=== PATIENT | female | born 1975 | race Caucasian/White ===

== ENCOUNTER 2017-04-06 21:18 | Inpatient (IN) | payer SELFPAY ==
[~2017-04-06] VITALS: Ht 175.3 cm; Wt 161.1 kg
[~2017-04-06 21:18] MED LIST: CYCL10TA2 PO; DULO60CA6 PO; HYDR-2672 PO; LISI2.5T PO
[2017-04-06] MEDS ORDERED: ACETAMINOPHEN 500 MG TABLET PO ONE (22:00)
[2017-04-06] MEDS ORDERED: IV NORMAL SALINE 1000ML BAG 1,000 ML IV ONE ×2 (22:00→23:30)
[2017-04-06] MEDS ORDERED: fentaNYL PF VIAL 100 MCG/2 ML VIAL IV ONE (22:00)
[2017-04-06 22:01] LABS: BASO % 0 % (0-3); EOS % 0 % (0-3); HEMATOCRIT 38.2 % (36.0-47.0); HEMOGLOBIN 12.5 g/dL (12.0-15.5); LYMPH # 0.7 x10^3/uL (1.0-4.8); LYMPH % 4 % (24-48); MEAN CORPUSCULAR HEMOGLOBIN 26 pg (25-35); MEAN CORPUSCULAR HGB CONC 33 g/dL (31-37); MEAN CORPUSCULAR VOLUME 79 fL (79-100); MONO % 3 % (0-9); NEUT % 93 % (31-73); PLATELET COUNT 331 x10^3/uL (140-400); RED BLOOD COUNT 4.86 x10^6/uL (3.50-5.40); RED CELL DISTRIBUTION WIDTH 15.4 % (11.5-14.5); WHITE BLOOD COUNT 17.6 x10^3/uL (4.0-11.0)
[2017-04-06 22:13] LABS: CALCIUM 9.4 mg/dL (8.5-10.1); CREATININE 1.1 mg/dL (0.6-1.0); GFR 54.7
--- NOTE | 2017-04-06 22:20 | RAD ---
INDICATION: Weakness COMPARISON: None TECHNIQUE: Axial, noncontrast CT images obtained through the head. One or more of the following individualized dose reduction techniques were utilized for this examination: 1. Automated exposure control; 2. Adjustment of the mA and/or kV according to patient size; 3. Use of iterative reconstruction technique. FINDINGS: No acute intracranial process is identified, specifically no acute blood products, midline shift, mass effect or extra-axial fluid collections. Ventricles and sulci appear appropriate for patient's age. Basilar cisterns are maintained. The visualized paranasal sinuses are clear. Mastoid air cells are clear. No calvarial fracture is present. Overlying scalp is intact. IMPRESSION: No acute intracranial process. Electronically signed by: Payal Davis (April 06, 2017 22:19:30)
[2017-04-06 22:27] LABS: BILIRUBIN,URINE NEGATIVE (NEG); GLUCOSE,URINE NEGATIVE (NEG); NITRITE,URINE NEGATIVE (NEG); PROTEIN,URINE NEGATIVE (NEG-TRACE)
[2017-04-06] MEDS ORDERED: CLINDAMYCIN 600MG PREMIX 50 ML IV ONE (22:30)
--- NOTE | 2017-04-06 22:32 | PHYS DOC ---
Past Medical History Past Medical History: Bipolar, Depression, Hypertension, Hypothyroid, Other Additional Past Medical Histor: OBESITY, 2 SLIPPED DISCS IN BACK Past Surgical History: , Other Additional Past Surgical Histo: CARPAL TUNNEL RELEASE Alcohol Use: Occasionally Drug Use: None Adult General Chief Complaint Chief Complaint: MULTIPLE COMPLAINTS [facility] HPI 41-year-old female is presenting with a fever as well as some significant headache that she noted around 3 PM today with some generalized weakness as well. She denies any nausea or vomiting. Patient does not appear to be in any acute distress and is nontoxic in appearance upon arrival. She is not complaining of any neck stiffness or neck pain. She does complain additionally of a left-sided anterior tibial cellulitis that has not yet been treated. She also has some ongoing fungal infection to the soles of both feet that she is on treatment for. She denies any chest pain or shortness of breath. Review of Systems Review of Systems Constitutional: Has fever or chills [] Eyes: Denies change in visual acuity, redness, or eye pain [] HENT: Denies nasal congestion or sore throat [] Respiratory: Denies cough or shortness of breath [] Cardiovascular: No additional information not addressed in HPI [] GI: Denies abdominal pain, nausea, vomiting, bloody stools or diarrhea [] : Denies dysuria or hematuria [] Musculoskeletal: Denies back pain or joint pain [] Integument: Denies rash or skin lesions [] Neurologic: Has headache, denies focal weakness or sensory changes [] Endocrine: Denies polyuria or polydipsia [] Current Medications Current Medications Current Medications Medications (Trade) Dose Ordered Sig/[facility] Start Time Stop Time Status Last Admin Dose Admin Acetaminophen (Tylenol) 1,000 mg 1X ONCE 04/06/17 22:00 04/06/17 22:01 DC 04/06/17 22:14 1,000 MG Clindamycin Phosphate 50 ml @ 100 mls/hr 1X ONCE 04/06/17 22:30 04/06/17 22:59 DC 04/06/17 22:45 100 MLS/HR Dexamethasone Sodium Phosphate (Decadron) 10 mg 1X ONCE 04/06/17 23:00 04/06/17 23:01 DC 04/06/17 23:20 10 MG Diphenhydramine HCl (Benadryl) 25 mg 1X ONCE 04/06/17 23:00 04/06/17 23:01 DC 04/06/17 23:20 25 MG Fentanyl Citrate (Fentanyl 2ml Vial) 50 mcg PRN Q2HR PRN 04/06/17 23:30 04/07/17 23:29 UNV Ketorolac Tromethamine (Toradol) 30 mg 1X ONCE 04/06/17 23:00 04/06/17 23:01 DC 04/06/17 23:20 30 MG Metoclopramide HCl (Reglan) 10 mg 1X ONCE 04/06/17 23:00 04/06/17 23:01 DC 04/06/17 23:21 10 MG Ondansetron HCl (Zofran) 4 mg PRN Q8HRS PRN 04/06/17 23:30 04/07/17 23:29 UNV Sodium Chloride 1,000 ml @ 1,000 mls/hr 1X ONCE 04/06/17 23:30 04/07/17 00:29 UNV Allergies Allergies Allergies Coded Allergies Type Severity Reaction Last Updated Verified No Known Drug Allergies 11/03/13 No Physical Exam Physical Exam Constitutional: Well developed, well nourished, no acute distress, non-toxic appearance. [] HENT: Normocephalic, atraumatic, bilateral external ears normal, oropharynx moist, no oral exudates, nose normal. [] Eyes: PERRLA, EOMI, conjunctiva normal, no discharge. [] Neck: Normal range of motion, no tenderness, supple, no stridor. [] Cardiovascular:Heart rate tachycardic with regular rhythm, no murmur [] Lungs & Thorax: Bilateral breath sounds clear to auscultation [] Abdomen: Bowel sounds normal, soft, no tenderness, no masses, no pulsatile masses. [] Skin: Warm, dry, no erythema, no rash. [] Back: No tenderness, no CVA tenderness. [] Extremities: Moderate left anterior tibial tenderness with erythema noted that is consistent with an lower extremity cellulitis, no cyanosis, no clubbing, ROM intact, no edema. [] Neurologic: Alert and oriented X 3, normal motor function, normal sensory function, no focal deficits noted. [] Psychologic: Affect normal, judgement normal, mood normal. [] Current Patient Data Vital Signs Vital Signs Date Time Temp Pulse Resp B/P (MAP) Pulse Ox O2 Delivery O2 Flow Rate FiO2 04/06/17 21:28 101.3 130 24 143/65 (91) 98 Room Air 101.3 Lab Values Laboratory Tests Test 04/06/17 20:35 04/06/17 21:29 04/06/17 21:50 POC Urine HCG, Qualitative Hcg negative (Negative) Urine Collection Type Unknown Urine Color Yellow Urine Clarity Clear Urine pH 8.0 Urine Specific [place] 1.025 Urine Protein Negative mg/dL (NEG-TRACE) Urine Glucose (UA) Negative mg/dL (NEG) Urine Ketones (Stick) Negative mg/dL (NEG) Urine Blood Negative (NEG) Urine Nitrite Negative (NEG) Urine Bilirubin Negative (NEG) Urine Urobilinogen Dipstick 1.0 mg/dL (0.2 mg/dL) Urine Leukocyte Esterase Negative (NEG) Urine RBC 0 /HPF (0-2) Urine WBC 1-4 /HPF (0-4) Urine Squamous Epithelial Cells Few /LPF Urine Bacteria Few /HPF (0-FEW) Urine Mucus Mod /LPF White Blood Count 17.6 x10^3/uL (4.0-11.0) H Red Blood Count 4.86 x10^6/uL (3.50-5.40) Hemoglobin 12.5 g/dL (12.0-15.5) Hematocrit 38.2 % (36.0-47.0) Mean Corpuscular Volume 79 fL (79-100) Mean Corpuscular Hemoglobin 26 pg (25-35) Mean Corpuscular Hemoglobin Concent 33 g/dL (31-37) Red Cell Distribution Width 15.4 % (11.5-14.5) H Platelet Count 331 x10^3/uL (140-400) Neutrophils (%) (Auto) 93 % (31-73) H Lymphocytes (%) (Auto) 4 % (24-48) L Monocytes (%) (Auto) 3 % (0-9) Eosinophils (%) (Auto) 0 % (0-3) Basophils (%) (Auto) 0 % (0-3) Neutrophils # (Auto) 16.3 x10^3uL (1.8-7.7) H Lymphocytes # (Auto) 0.7 x10^3/uL (1.0-4.8) L Monocytes # (Auto) 0.5 x10^3/uL (0.0-1.1) Eosinophils # (Auto) 0.0 x10^3/uL (0.0-0.7) Basophils # (Auto) 0.0 x10^3/uL (0.0-0.2) Platelet Estimate Pending Sodium Level 137 mmol/L (136-145) Potassium Level 4.0 mmol/L (3.5-5.1) Chloride Level 100 mmol/L (98-107) Carbon Dioxide Level 27 mmol/L (21-32) Anion Gap 10 (6-14) Blood Urea Nitrogen 14 mg/dL (7-20) Creatinine 1.1 mg/dL (0.6-1.0) H Estimated GFR (Cockcroft-Gault) 54.7 Glucose Level 134 mg/dL (70-99) H Calcium Level 9.4 mg/dL (8.5-10.1) Troponin I Quantitative < 0.017 ng/mL (0.000-0.055) Laboratory Tests 04/06/17 21:50 Laboratory Tests 04/06/17 21:50 EKG EKG EKG as interpreted by me shows a sinus tachycardia with a rate of 125 bpm. There is a leftward axis. There is no acute injury pattern seen. Intervals are normal. Radiology/Procedures Radiology/Procedures INDICATION: Weakness COMPARISON: None TECHNIQUE: Axial, noncontrast CT images obtained through the head. One or more of the following individualized dose reduction techniques were utilized for this examination: 1. Automated exposure control; 2. Adjustment of the mA and/or kV according to patient size; 3. Use of iterative reconstruction technique. FINDINGS: No acute intracranial process is identified, specifically no acute blood products, midline shift, mass effect or extra-axial fluid collections. Ventricles and sulci appear appropriate for patient's age. Basilar cisterns are maintained. The visualized paranasal sinuses are clear. Mastoid air cells are clear. No calvarial fracture is present. Overlying scalp is intact. IMPRESSION: No acute intracranial process. Electronically signed by: Payal Davis (April 06, 2017 22:19:30) 1 view of the chest as interpreted by me reveals no acute cardiopulmonary process. Course & Med Decision Making Course & Med Decision Making Pertinent Labs and Imaging studies reviewed. (See chart for details) 41-year-old female with a large semicircular last week and a dose of IV clindamycin and have full laboratory workup. A head CT is negative at this time. Patient was given a gram of Tylenol as well as IV fluids. We will await laboratory workup including influenza swabs and urinalysis. CT of her head was negative for any acute abnormality. 1 view her chest also did not reveal any acute abnormalities. Laboratory workup reveals an elevated white count of 17. Patient has remained persistently tachycardic after fluid bolus. Blood cultures and lactate been obtained. A dose of IV clindamycin has been given. I will be admitting the patient for her ongoing SIRS criteria with a known cellulitis. I will discuss the need to admit the patient with the hospitalist, Dr. Snell. Urinalysis was also unremarkable. Dragon Disclaimer Dragon Disclaimer This electronic medical record was generated, in whole or in part, using a voice recognition dictation system. Departure Departure Impression: Primary Impression: Cellulitis Additional Impressions: Fever Headache Disposition: ADMITTED INPATIENT Admitting Physician: Ava Snell Condition: STABLE Referrals: UNKNOWN PCP NAME (PCP) Problem Qualifiers JOVI MALAVE DO April 06, 2017 22:31
[2017-04-06 22:40] LABS: BACTERIA,URINE FEW /HPF (0-FEW); RBC,URINE 0 /HPF (0-2); SQUAMOUS EPITHELIAL CELL,UR FEW /LPF
[2017-04-06] MEDS ORDERED: METOCLOPRAMIDE HCL 10 MG/2 ML VIAL. IV ONE (23:00)
[2017-04-06] MEDS ORDERED: diphenhydrAMINE 50 MG/ML VIAL IVP ONE (23:00)
[2017-04-06] MEDS ORDERED: DEXAMETHASONE SOD PHOS 20 MG/5 ML VIAL. IV ONE (23:00)
[2017-04-06] MEDS ORDERED: KETOROLAC TROMETHAMINE 30 MG/ML INJ. IV ONE (23:00)
[2017-04-06 23:38] LABS: OBC FLU VALID
[2017-04-06 23:44] LABS: % BASOS 1 % (0-3)
[2017-04-06 23:45] LABS: PLT ESTIMATE ADEQUATE (ADEQUATE)
[2017-04-06] MEDS ORDERED: ONDANSETRON PF 4 MG/2 ML VIAL. IV PRN (23:45)
[2017-04-07] VITALS (7 sets, daily range): BP systolic 101–152; BP diastolic 43–78
[2017-04-07 01:19] LABS: CALCIUM 8.6 mg/dL (8.5-10.1); CREATININE 1.2 mg/dL (0.6-1.0); GFR 49.5; POTASSIUM 4.1 mmol/L (3.5-5.1)
[2017-04-07 01:20] LABS: BASO # 0.1 x10^3/uL (0.0-0.2); BASO % 0 % (0-3); EOS % 0 % (0-3); LYMPH # 0.5 x10^3/uL (1.0-4.8); LYMPH % 2 % (24-48); MEAN CORPUSCULAR HEMOGLOBIN 26 pg (25-35); MEAN CORPUSCULAR HGB CONC 33 g/dL (31-37); MEAN CORPUSCULAR VOLUME 79 fL (79-100); MONO % 3 % (0-9); NEUT % 95 % (31-73); PLATELET COUNT 259 x10^3/uL (140-400); RED BLOOD COUNT 4.68 x10^6/uL (3.50-5.40); RED CELL DISTRIBUTION WIDTH 15.8 % (11.5-14.5); WHITE BLOOD COUNT 21.5 x10^3/uL (4.0-11.0)
[2017-04-07] MEDS: IV NORMAL SALINE 1000ML BAG 1,000 ML IV SCH ×3 (01:23→15:30)
[2017-04-07] MEDS ORDERED: LISI-334 PO (01:58)
[2017-04-07] MEDS ORDERED: TERB250T PO (01:58)
[2017-04-07] MEDS ORDERED: BUDE10.22 IH (01:58)
[2017-04-07] MEDS ORDERED: CITA40TA5 PO (01:58)
[2017-04-07] MEDS ORDERED: CLON0.3T PO (01:58)
[2017-04-07] MEDS ORDERED: LEVO75TA5 PO (01:58)
[2017-04-07] MEDS ORDERED: DIVA500T2 PO (01:58)
--- NOTE | 2017-04-07 07:17 | RAD ---
Portable chest, 04/06/2017: History: Chest pain Comparison is made to a study from 01/15/2010. The heart size and pulmonary vascularity are normal. No pulmonary infiltrates are seen. There is no evidence of pleural fluid. IMPRESSION: No acute cardiopulmonary abnormality is detected.
--- NOTE | 2017-04-07 07:31 | EKG ---
[facility] [address] [place] [address] Test Date: 2017-04-06 Test Time: 21:35:41 Pat Name: NARCISO SMITH Department: Room: 646 1 Gender: F [employer]illed [employer]: : 1975 Requested By: JOVI MALAVE Order Number: [id number] Reading MD: Rosalina Gutierrez Measurements Intervals Helper Rate: 125 P: 32 WA: 168 QRS: -12 QRSD: 76 T: 62 QT: 282 QTc: 409 Interpretive Statements SINUS TACHYCARDIA LEFTWARD AXIS QRS(T) CONTOUR ABNORMALITY CONSISTENT WITH ANTEROSEPTAL INFARCT AGE UNDETERMINED T ABNORMALITY IN HIGH LATERAL LEADS RI6.01 Unconfirmed report No previous ECG available for comparison Electronically Signed On 04-10-2017 20:33:22 CDT by Rosalina Gutierrez
[2017-04-07] MEDS ORDERED: ONDANSETRON PF 4 MG/2 ML VIAL. IV PRN (10:15)
[2017-04-07] MEDS: CYCLOBENZAPRINE 10 MG TABLET. PO SCH (10:53)
[2017-04-07] MEDS: CITALOPRAM 20 MG TABLET. PO SCH (10:53)
[2017-04-07] MEDS: DIVALPROEX DELAYED RELEASE 500 MG TABLET.DR. PO SCH (10:53)
[2017-04-07] MEDS: fentaNYL PF VIAL 100 MCG/2 ML VIAL IV PRN ×2 (10:53→17:49)
[2017-04-07] MEDS: LISINOPRIL 20 MG TABLET PO SCH (10:54)
[2017-04-07] MEDS: ACETAMINOPHEN 325 MG TABLET. PO PRN ×2 (10:55→17:49)
[2017-04-07] MEDS: FLUCONAZOLE 100 MG TABLET. PO SCH (10:55)
[2017-04-07] MEDS: LEVOTHYROXINE 75 MCG TABLET PO SCH (10:55)
[2017-04-07] MEDS ORDERED: cloNIDine HCL 0.3 MG TABLET PO SCH (11:00)
[2017-04-07] MEDS ORDERED: hydrALAZINE 20 MG/ML VIAL. IVP PRN (13:45)
--- NOTE | 2017-04-07 13:45 | PDOC1 ---
History and Physical Date of Admission Date of Admission 04/06/17 Identification/Chief Complaint Chief Complaint fever, headache, left leg pain Problems: Source Source: Chart review, Patient History of Present Illness History of Present Illness HPI HPI 41-year-old female is presenting with a fever as well as some significant headache that she noted around 3 PM yesterday. Pt started to have headache yesterday, on the top , cont , moderate, fever 103 at home, also has left leg redness and pain starting from yesterday. She has had bl sole dry skin vs tinea pedis for 3months, on lamisil for 6weeks, but no improvement. She had left leg cellulitis 10ys ago. Denies cough, N/V, abd pain, chest pain, diarrhea. Past Medical History Past Medical History : Bipolar, Depression, Hypertension, Hypothyroid, Other Additional Past Medical Histor: OBESITY, 2 SLIPPED DISCS IN BACK Cardiovascular: HTN Past Surgical History Past Surgical History ry: , Other Additional Past Surgical Histo: CARPAL TUNNEL RELEASE Family History Family History: Hypertension Social History Smoke: <1 pack per day ALCOHOL: social Drugs: None Current Problem List Problem List Problems Medical Problems: (1) Cellulitis Status: Acute (2) Fever Status: Acute (3) Headache Status: Acute Current Medications Current Medications Current Medications Medications (Trade) Dose Ordered Sig/[facility] Start Time Stop Time Status Last Admin Dose Admin Acetaminophen (Tylenol) 650 mg PRN Q6HRS PRN 04/07/17 10:15 04/07/17 10:55 650 MG Cefazolin Sodium 1 gm/Sodium Chloride 50 ml @ 100 mls/hr Q8HRS 04/07/17 11:00 04/07/17 10:52 100 MLS/HR Citalopram Hydrobromide (CeleXA) 40 mg DAILY 04/07/17 11:00 04/07/17 10:53 40 MG Clindamycin Phosphate 50 ml @ 100 mls/hr 1X ONCE 04/06/17 22:30 04/06/17 22:59 DC 04/06/17 22:45 100 MLS/HR Clonidine HCl (Catapres) 0.3 mg DAILY 04/07/17 11:00 04/07/17 10:54 0.3 MG Cyclobenzaprine HCl (Flexeril) 10 mg DAILY 04/07/17 11:00 04/07/17 10:53 10 MG Dexamethasone Sodium Phosphate (Decadron) 10 mg 1X ONCE 04/06/17 23:00 04/06/17 23:01 DC 04/06/17 23:20 10 MG Diphenhydramine HCl (Benadryl) 25 mg 1X ONCE 04/06/17 23:00 04/06/17 23:01 DC 04/06/17 23:20 25 MG Divalproex Sodium (Depakote) 500 mg DAILY 04/07/17 11:00 04/07/17 10:53 500 MG Fentanyl Citrate (Fentanyl 2ml Vial) 50 mcg PRN Q2HR PRN 04/06/17 23:45 04/07/17 23:44 04/07/17 10:53 50 MCG Fluconazole (Diflucan) 100 mg DAILY 04/07/17 11:00 04/07/17 10:55 100 MG Ketorolac Tromethamine (Toradol) 30 mg 1X ONCE 04/06/17 23:00 04/06/17 23:01 DC 04/06/17 23:20 30 MG Levothyroxine Sodium (Synthroid) 75 mcg DAILYAC 04/07/17 11:00 04/07/17 10:55 75 MCG Lisinopril (Prinivil) 20 mg DAILY 04/07/17 11:00 04/07/17 10:54 20 MG Metoclopramide HCl (Reglan) 10 mg 1X ONCE 04/06/17 23:00 04/06/17 23:01 DC 04/06/17 23:21 10 MG Ondansetron HCl (Zofran) 4 mg PRN Q6HRS PRN 04/07/17 10:15 Sodium Chloride 1,000 ml @ 1,000 mls/hr 1X ONCE 04/06/17 23:30 04/07/17 00:29 DC 04/06/17 23:29 1,000 MLS/HR Tramadol HCl (Ultram) 50 mg PRN Q6HRS PRN 04/07/17 10:15 Allergies Allergies Allergies Coded Allergies Type Severity Reaction Last Updated Verified No Known Drug Allergies 11/03/13 No ROS Review of System CONSTITUTIONAL: No fever or chills EYES: No recent changes SKIN: No rash or itching CARDIOVASCULAR: No chest pain, syncope, palpitations, or edema RESPIRATORY: No SOB or cough GASTROINTESTINAL: No nausea, vomiting or abdominal pain NEUROLOGICAL: No headaches or weakness ENDOCRINE: No cold or heat intolerance GENITOURINARY: No urgency or frequency of urination MUSCULOSKELETAL: No back pain or joint pain LYMPHATICS: No enlarged lymph nodes PSYCHIATRIC: No anxiety or depression Physical Exam Physical Exam GEN.: No apparent distress. Alert and oriented. HEENT: Head is normocephalic, atraumatic NECK: Supple. LUNGS: Clear to auscultation. HEART: RRR, S1, S2 present. Peripheral pulses intact ABDOMEN: Soft, nontender. Positive bowel sounds. EXTREMITIES: Without any cyanosis. left leg erythematous, mild swollen, + tenderness NEUROLOGIC: Normal speech, normal tone PSYCHIATRIC: Normal affect, normal mood. SKIN: No ulcerations Vitals Vitals Vital Signs Date Time Temp Pulse Resp B/P (MAP) Pulse Ox O2 Delivery O2 Flow Rate FiO2 04/07/17 11:23 20 Room Air 04/07/17 10:56 97.5 88 114/53 (73) 96 97.5 Labs Labs Laboratory Tests Test 04/06/17 20:35 04/06/17 21:29 04/06/17 21:50 04/06/17 22:48 Bedside Urine HCG, Qualitative Hcg negative (Negative) Urine Collection Type Unknown Urine Color Yellow Urine Clarity Clear Urine pH 8.0 Urine Specific [place] 1.025 Urine Protein Negative mg/dL (NEG-TRACE) Urine Glucose (UA) Negative mg/dL (NEG) Urine Ketones (Stick) Negative mg/dL (NEG) Urine Blood Negative (NEG) Urine Nitrite Negative (NEG) Urine Bilirubin Negative (NEG) Urine Urobilinogen Dipstick 1.0 mg/dL (0.2 mg/dL) Urine Leukocyte Esterase Negative (NEG) Urine RBC 0 /HPF (0-2) Urine WBC 1-4 /HPF (0-4) Urine Squamous Epithelial Cells Few /LPF Urine Bacteria Few /HPF (0-FEW) Urine Mucus Mod /LPF White Blood Count 17.6 x10^3/uL (4.0-11.0) Red Blood Count 4.86 x10^6/uL (3.50-5.40) Hemoglobin 12.5 g/dL (12.0-15.5) Hematocrit 38.2 % (36.0-47.0) Mean Corpuscular Volume 79 fL (79-100) Mean Corpuscular Hemoglobin 26 pg (25-35) Mean Corpuscular Hemoglobin Concent 33 g/dL (31-37) Red Cell Distribution Width 15.4 % (11.5-14.5) Platelet Count 331 x10^3/uL (140-400) Neutrophils (%) (Auto) 93 % (31-73) Lymphocytes (%) (Auto) 4 % (24-48) Monocytes (%) (Auto) 3 % (0-9) Eosinophils (%) (Auto) 0 % (0-3) Basophils (%) (Auto) 0 % (0-3) Neutrophils # (Auto) 16.3 x10^3uL (1.8-7.7) Lymphocytes # (Auto) 0.7 x10^3/uL (1.0-4.8) Monocytes # (Auto) 0.5 x10^3/uL (0.0-1.1) Eosinophils # (Auto) 0.0 x10^3/uL (0.0-0.7) Basophils # (Auto) 0.0 x10^3/uL (0.0-0.2) Segmented Neutrophils % 93 % (35-66) Lymphocytes % 6 % (24-48) Basophils % 1 % (0-3) Platelet Estimate Adequate (ADEQUATE) Sodium Level 137 mmol/L (136-145) Potassium Level 4.0 mmol/L (3.5-5.1) Chloride Level 100 mmol/L (98-107) Carbon Dioxide Level 27 mmol/L (21-32) Anion Gap 10 (6-14) Blood Urea Nitrogen 14 mg/dL (7-20) Creatinine 1.1 mg/dL (0.6-1.0) Estimated GFR (Cockcroft-Gault) 54.7 Glucose Level 134 mg/dL (70-99) Lactic Acid Level 2.9 mmol/L (0.4-2.0) Calcium Level 9.4 mg/dL (8.5-10.1) Troponin I Quantitative < 0.017 ng/mL (0.000-0.055) Influenza Type A Antigen Negative (NEGATIVE) Influenza Type B Antigen Negative (NEGATIVE) Test 04/07/17 01:03 White Blood Count 21.5 x10^3/uL (4.0-11.0) Red Blood Count 4.68 x10^6/uL (3.50-5.40) Hemoglobin 12.0 g/dL (12.0-15.5) Hematocrit 37.0 % (36.0-47.0) Mean Corpuscular Volume 79 fL (79-100) Mean Corpuscular Hemoglobin 26 pg (25-35) Mean Corpuscular Hemoglobin Concent 33 g/dL (31-37) Red Cell Distribution Width 15.8 % (11.5-14.5) Platelet Count 259 x10^3/uL (140-400) Neutrophils (%) (Auto) 95 % (31-73) Lymphocytes (%) (Auto) 2 % (24-48) Monocytes (%) (Auto) 3 % (0-9) Eosinophils (%) (Auto) 0 % (0-3) Basophils (%) (Auto) 0 % (0-3) Neutrophils # (Auto) 20.4 x10^3uL (1.8-7.7) Lymphocytes # (Auto) 0.5 x10^3/uL (1.0-4.8) Monocytes # (Auto) 0.5 x10^3/uL (0.0-1.1) Eosinophils # (Auto) 0.0 x10^3/uL (0.0-0.7) Basophils # (Auto) 0.1 x10^3/uL (0.0-0.2) Sodium Level 137 mmol/L (136-145) Potassium Level 4.1 mmol/L (3.5-5.1) Chloride Level 103 mmol/L (98-107) Carbon Dioxide Level 26 mmol/L (21-32) Anion Gap 8 (6-14) Blood Urea Nitrogen 16 mg/dL (7-20) Creatinine 1.2 mg/dL (0.6-1.0) Estimated GFR (Cockcroft-Gault) 49.5 Glucose Level 133 mg/dL (70-99) Lactic Acid Level 1.9 mmol/L (0.4-2.0) Calcium Level 8.6 mg/dL (8.5-10.1) Laboratory Tests Test 04/06/17 20:35 04/06/17 21:29 04/06/17 21:50 04/06/17 22:48 Bedside Urine HCG, Qualitative Hcg negative (Negative) Urine Collection Type Unknown Urine Color Yellow Urine Clarity Clear Urine pH 8.0 Urine Specific [place] 1.025 Urine Protein Negative mg/dL (NEG-TRACE) Urine Glucose (UA) Negative mg/dL (NEG) Urine Ketones (Stick) Negative mg/dL (NEG) Urine Blood Negative (NEG) Urine Nitrite Negative (NEG) Urine Bilirubin Negative (NEG) Urine Urobilinogen Dipstick 1.0 mg/dL (0.2 mg/dL) Urine Leukocyte Esterase Negative (NEG) Urine RBC 0 /HPF (0-2) Urine WBC 1-4 /HPF (0-4) Urine Squamous Epithelial Cells Few /LPF Urine Bacteria Few /HPF (0-FEW) Urine Mucus Mod /LPF White Blood Count 17.6 x10^3/uL (4.0-11.0) Red Blood Count 4.86 x10^6/uL (3.50-5.40) Hemoglobin 12.5 g/dL (12.0-15.5) Hematocrit 38.2 % (36.0-47.0) Mean Corpuscular Volume 79 fL (79-100) Mean Corpuscular Hemoglobin 26 pg (25-35) Mean Corpuscular Hemoglobin Concent 33 g/dL (31-37) Red Cell Distribution Width 15.4 % (11.5-14.5) Platelet Count 331 x10^3/uL (140-400) Neutrophils (%) (Auto) 93 % (31-73) Lymphocytes (%) (Auto) 4 % (24-48) Monocytes (%) (Auto) 3 % (0-9) Eosinophils (%) (Auto) 0 % (0-3) Basophils (%) (Auto) 0 % (0-3) Neutrophils # (Auto) 16.3 x10^3uL (1.8-7.7) Lymphocytes # (Auto) 0.7 x10^3/uL (1.0-4.8) Monocytes # (Auto) 0.5 x10^3/uL (0.0-1.1) Eosinophils # (Auto) 0.0 x10^3/uL (0.0-0.7) Basophils # (Auto) 0.0 x10^3/uL (0.0-0.2) Segmented Neutrophils % 93 % (35-66) Lymphocytes % 6 % (24-48) Basophils % 1 % (0-3) Platelet Estimate Adequate (ADEQUATE) Sodium Level 137 mmol/L (136-145) Potassium Level 4.0 mmol/L (3.5-5.1) Chloride Level 100 mmol/L (98-107) Carbon Dioxide Level 27 mmol/L (21-32) Anion Gap 10 (6-14) Blood Urea Nitrogen 14 mg/dL (7-20) Creatinine 1.1 mg/dL (0.6-1.0) Estimated GFR (Cockcroft-Gault) 54.7 Glucose Level 134 mg/dL (70-99) Lactic Acid Level 2.9 mmol/L (0.4-2.0) Calcium Level 9.4 mg/dL (8.5-10.1) Troponin I Quantitative < 0.017 ng/mL (0.000-0.055) Influenza Type A Antigen Negative (NEGATIVE) Influenza Type B Antigen Negative (NEGATIVE) Test 04/07/17 01:03 White Blood Count 21.5 x10^3/uL (4.0-11.0) Red Blood Count 4.68 x10^6/uL (3.50-5.40) Hemoglobin 12.0 g/dL (12.0-15.5) Hematocrit 37.0 % (36.0-47.0) Mean Corpuscular Volume 79 fL (79-100) Mean Corpuscular Hemoglobin 26 pg (25-35) Mean Corpuscular Hemoglobin Concent 33 g/dL (31-37) Red Cell Distribution Width 15.8 % (11.5-14.5) Platelet Count 259 x10^3/uL (140-400) Neutrophils (%) (Auto) 95 % (31-73) Lymphocytes (%) (Auto) 2 % (24-48) Monocytes (%) (Auto) 3 % (0-9) Eosinophils (%) (Auto) 0 % (0-3) Basophils (%) (Auto) 0 % (0-3) Neutrophils # (Auto) 20.4 x10^3uL (1.8-7.7) Lymphocytes # (Auto) 0.5 x10^3/uL (1.0-4.8) Monocytes # (Auto) 0.5 x10^3/uL (0.0-1.1) Eosinophils # (Auto) 0.0 x10^3/uL (0.0-0.7) Basophils # (Auto) 0.1 x10^3/uL (0.0-0.2) Sodium Level 137 mmol/L (136-145) Potassium Level 4.1 mmol/L (3.5-5.1) Chloride Level 103 mmol/L (98-107) Carbon Dioxide Level 26 mmol/L (21-32) Anion Gap 8 (6-14) Blood Urea Nitrogen 16 mg/dL (7-20) Creatinine 1.2 mg/dL (0.6-1.0) Estimated GFR (Cockcroft-Gault) 49.5 Glucose Level 133 mg/dL (70-99) Lactic Acid Level 1.9 mmol/L (0.4-2.0) Calcium Level 8.6 mg/dL (8.5-10.1) VTE Prophylaxis Ordered VTE Prophylaxis Devices: Yes VTE Pharmacological Prophylaxi: Yes Assessment/Plan Assessment/Plan 1. left leg cellulitis 2. SIRS with 1 3. morbid obesity 4. htn 5. ckd3 6. depression 7. bipolar 2 8. hypothyroidism 9. bl sole dry skin vs arina pedis 10. tobaccoism plan: 1. add cefazolin diflucan x7ds 2. cont home meds hold clonidine, lamisil 3. fu bcx 4. pain control dvt ppx ROBIN RICE MD April 07, 2017 13:45
[2017-04-07] MEDS: traMADol 50 MG TABLET PO PRN (20:39)
[2017-04-08 03:21] VITALS: BP 136/63
[2017-04-08 05:16] LABS: BASO % 0 % (0-3); EOS % 0 % (0-3); HEMATOCRIT 32.5 % (36.0-47.0); HEMOGLOBIN 10.5 g/dL (12.0-15.5); LYMPH # 1.5 x10^3/uL (1.0-4.8); LYMPH % 10 % (24-48); MEAN CORPUSCULAR HEMOGLOBIN 26 pg (25-35); MEAN CORPUSCULAR HGB CONC 32 g/dL (31-37); MEAN CORPUSCULAR VOLUME 80 fL (79-100); MONO % 5 % (0-9); NEUT % 86 % (31-73); PLATELET COUNT 283 x10^3/uL (140-400); RED BLOOD COUNT 4.08 x10^6/uL (3.50-5.40); RED CELL DISTRIBUTION WIDTH 15.7 % (11.5-14.5); WHITE BLOOD COUNT 15.8 x10^3/uL (4.0-11.0)
[2017-04-08 05:40] LABS: CALCIUM 8.7 mg/dL (8.5-10.1); CREATININE 0.9 mg/dL (0.6-1.0); POTASSIUM 3.8 mmol/L (3.5-5.1)
[2017-04-08] MEDS: traMADol 50 MG TABLET PO PRN ×3 (06:08→20:32)
[2017-04-08 07:00] VITALS: BP 133/80
[2017-04-08] MEDS: LEVOTHYROXINE 75 MCG TABLET PO SCH (07:17)
[2017-04-08] MEDS: DIVALPROEX DELAYED RELEASE 500 MG TABLET.DR. PO SCH (07:17)
[2017-04-08] MEDS: CITALOPRAM 20 MG TABLET. PO SCH (07:17)
[2017-04-08] MEDS: CYCLOBENZAPRINE 10 MG TABLET. PO SCH (07:18)
[2017-04-08] MEDS: LISINOPRIL 20 MG TABLET PO SCH (07:18)
[2017-04-08] MEDS: FLUCONAZOLE 100 MG TABLET. PO SCH (07:18)
[2017-04-08 11:00] VITALS: BP 146/71
[2017-04-08] MEDS ORDERED: VANCOMYCIN 2 GM in IV NORMAL SALINE 500ML BAG 500 ML IV SCH (11:45)
[2017-04-08] MEDS ORDERED: VANCOMYCIN 2 GM in IV NORMAL SALINE 500ML BAG 500 ML IV ONE (12:00)
--- NOTE | 2017-04-08 12:48 | PDOC ---
PROGRESS NOTES Chief Complaint Chief Complaint 1. left leg cellulitis 2. SIRS with 1 3. morbid obesity 4. htn 5. 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 depression 7. bipolar 2 8. hypothyroidism 9. bl sole dry skin vs tinea pedis 10. tobaccoism plan: 1. add cefazolin, add vancomycin, ID consult diflucan x7ds 2. cont home meds hold clonidine, lamisil 3. fu bcx 4. pain control dvt ppx History of Present Illness History of Present Illness clinically feels better, no fever, wbc better however, erythema and pain is worse today Vitals Vitals Vital Signs Date Time Temp Pulse Resp B/P (MAP) Pulse Ox O2 Delivery O2 Flow Rate FiO2 04/08/17 11:00 97.3 85 20 146/71 (96) 96 Room Air 97.3 Physical Exam Physical Exam left leg has erythema, worse today, with mild edema, tenderness General: Alert, Oriented X3, Cooperative Heart: Regular rate, Normal S1, Normal S2 Lungs: Clear Abdomen: Normal bowel sounds, Soft Extremities: No clubbing, No cyanosis Skin: No breakdown Labs LABS Laboratory Tests Test 04/08/17 04:15 White Blood Count 15.8 x10^3/uL (4.0-11.0) Red Blood Count 4.08 x10^6/uL (3.50-5.40) Hemoglobin 10.5 g/dL (12.0-15.5) Hematocrit 32.5 % (36.0-47.0) Mean Corpuscular Volume 80 fL (79-100) Mean Corpuscular Hemoglobin 26 pg (25-35) Mean Corpuscular Hemoglobin Concent 32 g/dL (31-37) Red Cell Distribution Width 15.7 % (11.5-14.5) Platelet Count 283 x10^3/uL (140-400) Neutrophils (%) (Auto) 86 % (31-73) Lymphocytes (%) (Auto) 10 % (24-48) Monocytes (%) (Auto) 5 % (0-9) Eosinophils (%) (Auto) 0 % (0-3) Basophils (%) (Auto) 0 % (0-3) Neutrophils # (Auto) 13.5 x10^3uL (1.8-7.7) Lymphocytes # (Auto) 1.5 x10^3/uL (1.0-4.8) Monocytes # (Auto) 0.7 x10^3/uL (0.0-1.1) Eosinophils # (Auto) 0.0 x10^3/uL (0.0-0.7) Basophils # (Auto) 0.0 x10^3/uL (0.0-0.2) Sodium Level 140 mmol/L (136-145) Potassium Level 3.8 mmol/L (3.5-5.1) Chloride Level 106 mmol/L (98-107) Carbon Dioxide Level 28 mmol/L (21-32) Anion Gap 6 (6-14) Blood Urea Nitrogen 14 mg/dL (7-20) Creatinine 0.9 mg/dL (0.6-1.0) Estimated GFR (Cockcroft-Gault) 69.0 Glucose Level 107 mg/dL (70-99) Calcium Level 8.7 mg/dL (8.5-10.1) Review of Systems Review of Systems no fever, chills, sob or chest pain Assessment and Plan Assessmemt and Plan Problems Medical Problems: (1) Cellulitis Status: Acute (2) Fever Status: Acute (3) Headache Status: Acute Problems: Comment Review of Relevant I have reviewed the following items juve (where applicable) has been applied. Labs Laboratory Tests Test 04/06/17 20:35 04/06/17 21:29 04/06/17 21:50 04/06/17 22:48 Bedside Urine HCG, Qualitative Hcg negative (Negative) Urine Collection Type Unknown Urine Color Yellow Urine Clarity Clear Urine pH 8.0 Urine Specific [place] 1.025 Urine Protein Negative mg/dL (NEG-TRACE) Urine Glucose (UA) Negative mg/dL (NEG) Urine Ketones (Stick) Negative mg/dL (NEG) Urine Blood Negative (NEG) Urine Nitrite Negative (NEG) Urine Bilirubin Negative (NEG) Urine Urobilinogen Dipstick 1.0 mg/dL (0.2 mg/dL) Urine Leukocyte Esterase Negative (NEG) Urine RBC 0 /HPF (0-2) Urine WBC 1-4 /HPF (0-4) Urine Squamous Epithelial Cells Few /LPF Urine Bacteria Few /HPF (0-FEW) Urine Mucus Mod /LPF White Blood Count 17.6 x10^3/uL (4.0-11.0) Red Blood Count 4.86 x10^6/uL (3.50-5.40) Hemoglobin 12.5 g/dL (12.0-15.5) Hematocrit 38.2 % (36.0-47.0) Mean Corpuscular Volume 79 fL (79-100) Mean Corpuscular Hemoglobin 26 pg (25-35) Mean Corpuscular Hemoglobin Concent 33 g/dL (31-37) Red Cell Distribution Width 15.4 % (11.5-14.5) Platelet Count 331 x10^3/uL (140-400) Neutrophils (%) (Auto) 93 % (31-73) Lymphocytes (%) (Auto) 4 % (24-48) Monocytes (%) (Auto) 3 % (0-9) Eosinophils (%) (Auto) 0 % (0-3) Basophils (%) (Auto) 0 % (0-3) Neutrophils # (Auto) 16.3 x10^3uL (1.8-7.7) Lymphocytes # (Auto) 0.7 x10^3/uL (1.0-4.8) Monocytes # (Auto) 0.5 x10^3/uL (0.0-1.1) Eosinophils # (Auto) 0.0 x10^3/uL (0.0-0.7) Basophils # (Auto) 0.0 x10^3/uL (0.0-0.2) Segmented Neutrophils % 93 % (35-66) Lymphocytes % 6 % (24-48) Basophils % 1 % (0-3) Platelet Estimate Adequate (ADEQUATE) Sodium Level 137 mmol/L (136-145) Potassium Level 4.0 mmol/L (3.5-5.1) Chloride Level 100 mmol/L (98-107) Carbon Dioxide Level 27 mmol/L (21-32) Anion Gap 10 (6-14) Blood Urea Nitrogen 14 mg/dL (7-20) Creatinine 1.1 mg/dL (0.6-1.0) Estimated GFR (Cockcroft-Gault) 54.7 Glucose Level 134 mg/dL (70-99) Lactic Acid Level 2.9 mmol/L (0.4-2.0) Calcium Level 9.4 mg/dL (8.5-10.1) Troponin I Quantitative < 0.017 ng/mL (0.000-0.055) Influenza Type A Antigen Negative (NEGATIVE) Influenza Type B Antigen Negative (NEGATIVE) Test 04/07/17 01:03 04/08/17 04:15 White Blood Count 21.5 x10^3/uL (4.0-11.0) 15.8 x10^3/uL (4.0-11.0) Red Blood Count 4.68 x10^6/uL (3.50-5.40) 4.08 x10^6/uL (3.50-5.40) Hemoglobin 12.0 g/dL (12.0-15.5) 10.5 g/dL (12.0-15.5) Hematocrit 37.0 % (36.0-47.0) 32.5 % (36.0-47.0) Mean Corpuscular Volume 79 fL (79-100) 80 fL (79-100) Mean Corpuscular Hemoglobin 26 pg (25-35) 26 pg (25-35) Mean Corpuscular Hemoglobin Concent 33 g/dL (31-37) 32 g/dL (31-37) Red Cell Distribution Width 15.8 % (11.5-14.5) 15.7 % (11.5-14.5) Platelet Count 259 x10^3/uL (140-400) 283 x10^3/uL (140-400) Neutrophils (%) (Auto) 95 % (31-73) 86 % (31-73) Lymphocytes (%) (Auto) 2 % (24-48) 10 % (24-48) Monocytes (%) (Auto) 3 % (0-9) 5 % (0-9) Eosinophils (%) (Auto) 0 % (0-3) 0 % (0-3) Basophils (%) (Auto) 0 % (0-3) 0 % (0-3) Neutrophils # (Auto) 20.4 x10^3uL (1.8-7.7) 13.5 x10^3uL (1.8-7.7) Lymphocytes # (Auto) 0.5 x10^3/uL (1.0-4.8) 1.5 x10^3/uL (1.0-4.8) Monocytes # (Auto) 0.5 x10^3/uL (0.0-1.1) 0.7 x10^3/uL (0.0-1.1) Eosinophils # (Auto) 0.0 x10^3/uL (0.0-0.7) 0.0 x10^3/uL (0.0-0.7) Basophils # (Auto) 0.1 x10^3/uL (0.0-0.2) 0.0 x10^3/uL (0.0-0.2) Sodium Level 137 mmol/L (136-145) 140 mmol/L (136-145) Potassium Level 4.1 mmol/L (3.5-5.1) 3.8 mmol/L (3.5-5.1) Chloride Level 103 mmol/L (98-107) 106 mmol/L (98-107) Carbon Dioxide Level 26 mmol/L (21-32) 28 mmol/L (21-32) Anion Gap 8 (6-14) 6 (6-14) Blood Urea Nitrogen 16 mg/dL (7-20) 14 mg/dL (7-20) Creatinine 1.2 mg/dL (0.6-1.0) 0.9 mg/dL (0.6-1.0) Estimated GFR (Cockcroft-Gault) 49.5 69.0 Glucose Level 133 mg/dL (70-99) 107 mg/dL (70-99) Lactic Acid Level 1.9 mmol/L (0.4-2.0) Calcium Level 8.6 mg/dL (8.5-10.1) 8.7 mg/dL (8.5-10.1) Laboratory Tests Test 04/08/17 04:15 White Blood Count 15.8 x10^3/uL (4.0-11.0) Red Blood Count 4.08 x10^6/uL (3.50-5.40) Hemoglobin 10.5 g/dL (12.0-15.5) Hematocrit 32.5 % (36.0-47.0) Mean Corpuscular Volume 80 fL (79-100) Mean Corpuscular Hemoglobin 26 pg (25-35) Mean Corpuscular Hemoglobin Concent 32 g/dL (31-37) Red Cell Distribution Width 15.7 % (11.5-14.5) Platelet Count 283 x10^3/uL (140-400) Neutrophils (%) (Auto) 86 % (31-73) Lymphocytes (%) (Auto) 10 % (24-48) Monocytes (%) (Auto) 5 % (0-9) Eosinophils (%) (Auto) 0 % (0-3) Basophils (%) (Auto) 0 % (0-3) Neutrophils # (Auto) 13.5 x10^3uL (1.8-7.7) Lymphocytes # (Auto) 1.5 x10^3/uL (1.0-4.8) Monocytes # (Auto) 0.7 x10^3/uL (0.0-1.1) Eosinophils # (Auto) 0.0 x10^3/uL (0.0-0.7) Basophils # (Auto) 0.0 x10^3/uL (0.0-0.2) Sodium Level 140 mmol/L (136-145) Potassium Level 3.8 mmol/L (3.5-5.1) Chloride Level 106 mmol/L (98-107) Carbon Dioxide Level 28 mmol/L (21-32) Anion Gap 6 (6-14) Blood Urea Nitrogen 14 mg/dL (7-20) Creatinine 0.9 mg/dL (0.6-1.0) Estimated GFR (Cockcroft-Gault) 69.0 Glucose Level 107 mg/dL (70-99) Calcium Level 8.7 mg/dL (8.5-10.1) Microbiology 04/06/17 Blood Culture - Preliminary, Resulted NO GROWTH AFTER 1 DAY Medications Current Medications Acetaminophen (Tylenol) 1,000 mg 1X ONCE PO Last administered on 04/06/17 22: 14; Start 04/06/17 at 22:00; Stop 04/06/17 at 22:01; Status DC Sodium Chloride 1,000 ml @ 1,000 mls/hr 1X ONCE IV Last administered on 22:13; Start 04/06/17 at 22:00; Stop 04/06/17 at 22:59; Status DC Fentanyl Citrate (Fentanyl 2ml Vial) 50 mcg 1X ONCE IV Last administered on 22:13; Start 04/06/17 at 22:00; Stop 04/06/17 at 22:01; Status DC Clindamycin Phosphate 50 ml @ 100 mls/hr 1X ONCE IV Last administered on 04/06 22:45; Start 04/06/17 at 22:30; Stop 04/06/17 at 22:59; Status DC Ketorolac Tromethamine (Toradol) 30 mg 1X ONCE IV Last administered on 23:20; Start 04/06/17 at 23:00; Stop 04/06/17 at 23:01; Status DC Diphenhydramine HCl (Benadryl) 25 mg 1X ONCE IVP Last administered on 23:20; Start 04/06/17 at 23:00; Stop 04/06/17 at 23:01; Status DC Metoclopramide HCl (Reglan) 10 mg 1X ONCE IV Last administered on 04/06/17 23 :21; Start 04/06/17 at 23:00; Stop 04/06/17 at 23:01; Status DC Dexamethasone Sodium Phosphate (Decadron) 10 mg 1X ONCE IV Last administered on 04/06/17 23:20; Start 04/06/17 at 23:00; Stop 04/06/17 at 23:01; Status DC Ondansetron HCl (Zofran) 4 mg PRN Q8HRS PRN IV NAUSEA/VOMITING; Start 04/06/17 at 23:45; Stop 04/07/17 at 23:44; Status DC Fentanyl Citrate (Fentanyl 2ml Vial) 50 mcg PRN Q2HR PRN IV PAIN Last administered on 04/07/17 17:49; Start 04/06/17 at 23:45; Stop 04/07/17 at 23:44 ; Status DC Sodium Chloride 1,000 ml @ 125 mls/hr Q8H IV Last administered on 04/07/17 12 :57; Start 04/06/17 at 23:30; Stop 04/07/17 at 23:29; Status DC Sodium Chloride 1,000 ml @ 1,000 mls/hr 1X ONCE IV Last administered on 23:29; Start 04/06/17 at 23:30; Stop 04/07/17 at 00:29; Status DC Clonidine HCl (Catapres) 0.3 mg DAILY PO Last administered on 04/07/17 10:54; Start 04/07/17 at 11:00; Stop 04/07/17 at 13:41; Status DC Cyclobenzaprine HCl (Flexeril) 10 mg DAILY PO Last administered on 04/08/17 07 :18; Start 04/07/17 at 11:00 Divalproex Sodium (Depakote) 500 mg DAILY PO Last administered on 04/08/17 07: 17; Start 04/07/17 at 11:00 Levothyroxine Sodium (Synthroid) 75 mcg DAILYAC PO Last administered on 07:17; Start 04/07/17 at 11:00 Lisinopril (Prinivil) 20 mg DAILY PO Last administered on 04/08/17 07:18; Start 04/07/17 at 11:00 Citalopram Hydrobromide (CeleXA) 40 mg DAILY PO Last administered on 04/08/17 07:17; Start 04/07/17 at 11:00 Acetaminophen (Tylenol) 650 mg PRN Q6HRS PRN PO FEVER Last administered on 04/07 17:49; Start 04/07/17 at 10:15 Ondansetron HCl (Zofran) 4 mg PRN Q6HRS PRN IV NAUSEA/VOMITING; Start 04/07/17 at 10:15 Tramadol HCl (Ultram) 50 mg PRN Q6HRS PRN PO PAIN Last administered on 06:08; Start 04/07/17 at 10:15 Cefazolin Sodium 1 gm/Sodium Chloride 50 ml @ 100 mls/hr Q8HRS IV Last administered on 04/08/17 06:05; Start 04/07/17 at 11:00 Fluconazole (Diflucan) 100 mg DAILY PO Last administered on 04/08/17 07:18; Start 04/07/17 at 11:00 Enoxaparin Sodium (Lovenox 60mg Syringe) 60 mg Q12HR SQ Last administered on 07:16; Start 04/07/17 at 14:00 Hydralazine HCl (Apresoline) 10 mg PRN Q4HRS PRN IVP ELEVATED BP, SEE COMMENTS ; Start 04/07/17 at 13:45 Vancomycin HCl (Vanco Per Pharmacy) 1 each PRN DAILY PRN MC SEE COMMENTS; Start 04/08/17 at 11:45 Vancomycin HCl 2 gm/Sodium Chloride 500 ml @ 250 mls/hr Q12H IV ; Start at 11:45; Status UNV Vancomycin HCl 2 gm/Sodium Chloride 500 ml @ 250 mls/hr 1X ONCE IV ; Start at 12:00; Stop 04/08/17 at 13:59 Active Scripts Active Reported Lamisil (Terbinafine Hcl) 250 Mg Tablet Unknown Dose PO Clonidine Hcl 0.3 Mg Tablet Unknown Dose PO DAILY Levothyroxine Sodium 75 Mcg Tablet 75 Mcg PO DAILYAC Depakote (Divalproex Sodium) 500 Mg Tablet.dr 500 Mg PO DAILY Citalopram Hbr (Citalopram Hydrobromide) 40 Mg Tablet 40 Mg PO DAILY Lisinopril 20 Mg Tablet 1 Tab PO DAILY Symbicort 80-4.5 Mcg Inhaler (Budesonide/Formoterol Fumarate) 10.2 Gm Hfa.aer.ad Unknown Dose IH BID Cyclobenzaprine Hcl 10 Mg Tablet 10 Mg PO DAILY Vitals/I & O Vital Sign - Last 24 Hours 04/07/17 04/07/17 04/07/17 04/07/17 15:00 17:49 19:16 20:00 Temp 97.7 97.9 97.7 97.9 Pulse 85 84 Resp 20 20 18 B/P (MAP) 117/49 (71) 101/53 (69) Pulse Ox 99 97 O2 Delivery Room Air Room Air Room Air Room Air 04/07/17 04/08/17 04/08/17 04/08/17 23:06 03:21 07:00 07:08 Temp 97.5 97.6 97.9 97.5 97.6 97.9 Pulse 86 82 87 Resp 18 18 20 20 B/P (MAP) 152/78 (102) 136/63 (87) 133/80 (97) Pulse Ox 97 96 97 O2 Delivery Room Air Room Air Room Air Room Air 04/08/17 04/08/17 04/08/17 07:18 07:28 11:00 Temp 97.3 97.3 Pulse 82 85 Resp 20 B/P (MAP) 136/63 146/71 (96) Pulse Ox 96 O2 Delivery Room Air Room Air Intake and Output 04/07/17 04/07/17 04/08/17 15:00 23:00 07:00 Intake Total 850 ml Balance 850 ml ROBIN RICE MD April 08, 2017 12:48
[2017-04-08 15:00] VITALS: BP 107/55
[2017-04-08] MEDS: VANCOMYCIN PER PHARMACY MC PRN ×3 (15:50→15:58)
[2017-04-08 19:50] VITALS: BP 125/53
[2017-04-08] MEDS: VANCOMYCIN 2 GM in IV NORMAL SALINE 500ML BAG 500 ML IV SCH (22:00)
[2017-04-08 23:32] VITALS: BP 107/57
[2017-04-09 03:00] VITALS: BP 121/77
[2017-04-09 05:13] LABS: BASO % 0 % (0-3); EOS % 0 % (0-3); HEMATOCRIT 32.2 % (36.0-47.0); HEMOGLOBIN 10.8 g/dL (12.0-15.5); LYMPH # 2.9 x10^3/uL (1.0-4.8); LYMPH % 27 % (24-48); MEAN CORPUSCULAR HEMOGLOBIN 26 pg (25-35); MEAN CORPUSCULAR HGB CONC 34 g/dL (31-37); MEAN CORPUSCULAR VOLUME 79 fL (79-100); MONO % 5 % (0-9); NEUT % 67 % (31-73); PLATELET COUNT 313 x10^3/uL (140-400); WHITE BLOOD COUNT 10.5 x10^3/uL (4.0-11.0)
[2017-04-09 05:25] LABS: CALCIUM 8.5 mg/dL (8.5-10.1); GFR 61.1; POTASSIUM 3.9 mmol/L (3.5-5.1)
[2017-04-09] MEDS: VANCOMYCIN 2 GM in IV NORMAL SALINE 500ML BAG 500 ML IV SCH (06:34)
[2017-04-09] MEDS: LEVOTHYROXINE 75 MCG TABLET PO SCH (06:34)
[2017-04-09 06:55] VITALS: BP 121/59
[2017-04-09] MEDS: traMADol 50 MG TABLET PO PRN (07:33)
[2017-04-09] MEDS: DIVALPROEX DELAYED RELEASE 500 MG TABLET.DR. PO SCH (08:12)
[2017-04-09] MEDS: CYCLOBENZAPRINE 10 MG TABLET. PO SCH (08:13)
[2017-04-09] MEDS: LISINOPRIL 20 MG TABLET PO SCH (08:13)
[2017-04-09] MEDS: FLUCONAZOLE 100 MG TABLET. PO SCH (08:13)
[2017-04-09] MEDS: CITALOPRAM 20 MG TABLET. PO SCH (08:13)
--- NOTE | 2017-04-09 10:01 | PDOC ---
Infectious Disease Note Subjective Subjective Pt is here for left leg redness, now improving very dry flaky skin at feet ROS ROS GEN: Denies fevers, chills, sweats HEENT: Denies blurred vision, sore throat CV: Denies chest pain RESP: Denies shortness of air, cough GI: Denies n/v/d : Denies hematuria, dysuria ENDO: Denies weight changes NEURO: Denies confusion, dizziness MSK: Denies weakness, joint pain/swelling SKIN: Denies rash, pruritus Vital Sign Vital Signs Vital Signs Date Time Temp Pulse Resp B/P (MAP) Pulse Ox O2 Delivery O2 Flow Rate FiO2 04/09/17 08:35 95 Room Air 04/09/17 08:13 91 121/59 04/09/17 06:55 98.2 22 98.2 Physical Exam PHYSICAL EXAM GENERAL: NAD, Alert HEENT: PERRL, OC/OP NECK: Supple, no JVD, no LN LUNGS: Clear HEART: S1S2, no gallop, no murmur ABD: Soft, NT, no organomegaly, no rebound EXT: No edema, no cyanosis, left leg redness now faint AGENT PRODUCER: Alert, oriented x 3, no focal neurologic deficit SKIN: No rash IV: ok Labs Lab Laboratory Tests Test 04/09/17 02:25 White Blood Count 10.5 x10^3/uL (4.0-11.0) Red Blood Count 4.10 x10^6/uL (3.50-5.40) Hemoglobin 10.8 g/dL (12.0-15.5) Hematocrit 32.2 % (36.0-47.0) Mean Corpuscular Volume 79 fL (79-100) Mean Corpuscular Hemoglobin 26 pg (25-35) Mean Corpuscular Hemoglobin Concent 34 g/dL (31-37) Red Cell Distribution Width 16.0 % (11.5-14.5) Platelet Count 313 x10^3/uL (140-400) Neutrophils (%) (Auto) 67 % (31-73) Lymphocytes (%) (Auto) 27 % (24-48) Monocytes (%) (Auto) 5 % (0-9) Eosinophils (%) (Auto) 0 % (0-3) Basophils (%) (Auto) 0 % (0-3) Neutrophils # (Auto) 7.0 x10^3uL (1.8-7.7) Lymphocytes # (Auto) 2.9 x10^3/uL (1.0-4.8) Monocytes # (Auto) 0.5 x10^3/uL (0.0-1.1) Eosinophils # (Auto) 0.0 x10^3/uL (0.0-0.7) Basophils # (Auto) 0.0 x10^3/uL (0.0-0.2) Sodium Level 141 mmol/L (136-145) Potassium Level 3.9 mmol/L (3.5-5.1) Chloride Level 105 mmol/L (98-107) Carbon Dioxide Level 27 mmol/L (21-32) Anion Gap 9 (6-14) Blood Urea Nitrogen 14 mg/dL (7-20) Creatinine 1.0 mg/dL (0.6-1.0) Estimated GFR (Cockcroft-Gault) 61.1 Glucose Level 79 mg/dL (70-99) Calcium Level 8.5 mg/dL (8.5-10.1) Objective Assessment Left leg cellulitis Feet dry flaky skin, ? yeast vs just dry skin Obesity Hypothyroidism Plan Plan of Care ok to d/c on keflex and diflucan need to lose wt MONET ORDOÑEZ MD April 09, 2017 10:00
[2017-04-09] MEDS ORDERED: FLUCONAZOLE 100 MG TABLET. PO SCH (10:30)
[2017-04-09 10:53] VITALS: BP 142/67
[2017-04-09] MEDS ORDERED: FLUC100T PO (11:26)
[2017-04-09] MEDS ORDERED: CEPH250C PO (11:26)
--- NOTE | 2017-04-09 12:47 | PDOC3 ---
Discharge Summary [facility] Date of Admission: April 06, 2017 Discharge Date: April 09, 2017 Admitting Diagnosis 1. left leg cellulitis 2. SIRS with 1 3. morbid obesity 4. htn 5. 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 depression 7. bipolar 2 8. hypothyroidism 9. bl sole dry skin vs tinea pedis 10. tobaccoism Problems: Final Diagnosis CONSULTS id Brief Hospital Course 41-year-old female is presenting with a fever as well as some significant headache that she noted around 3 PM yesterday. Pt started to have headache yesterday, on the top , cont , moderate, fever 103 at home, also has left leg redness and pain starting from yesterday. She has had bl sole dry skin vs tinea pedis for 3months, on lamisil for 6weeks, but no improvement. She had left leg cellulitis 10ys ago. Denies cough, N/V, abd pain, chest pain, diarrhea. pt's leg looks much better today, with less erythema and pain, WBC 10.5 from 15 yesterday. dc with keflex, and diflucan.asked pt to see derm for her sole dry skin. dc clonidine since bp ok dc time 35min Physical Exam left leg has erythema, much better today, with mild edema, tenderness General: Alert, Oriented X3, Cooperative Heart: Regular rate, Normal S1, Normal S2 Lungs: Clear Abdomen: Normal bowel sounds, Soft Extremities: No clubbing, No cyanosis Skin: No breakdown Problems: Disposition home CONDITION AT DISCHARGE: Improved Diet regular Scheduled Budesonide/Formoterol Fumarate (Symbicort 80-4.5 Mcg Inhaler), Unknown Dose IH BID, (Reported) Cephalexin (Cephalexin), 500 MG PO QID Citalopram Hydrobromide (Citalopram Hbr), 40 MG PO DAILY, (Reported) Cyclobenzaprine Hcl (Cyclobenzaprine Hcl), 10 MG PO DAILY, (Reported) Divalproex Sodium (Depakote), 500 MG PO DAILY, (Reported) Fluconazole (Diflucan), 200 MG PO DAILY Levothyroxine Sodium (Levothyroxine Sodium), 75 MCG PO DAILYAC, (Reported) Lisinopril (Lisinopril), 1 TAB PO DAILY, (Reported) Discontinued Medications Clonidine Hcl (Clonidine Hcl), Unknown Dose PO DAILY, (Reported) Duloxetine Hcl (Cymbalta), 1 CAP PO DAILY, (Reported) Hydrocodone Bit/Acetaminophen (Hydrocodone-Apap 10-325 ), 1 TAB PO PRN Q6HRS PRN for PAIN, (Reported) Lisinopril (Lisinopril), 1 TAB PO DAILY, (Reported) Terbinafine Hcl (Lamisil), Unknown Dose PO, (Reported) Follow Up PCP IN 2 WEEKs ROBIN RICE MD April 09, 2017 12:47
[2017-04-09] MEDS ORDERED: CEPHALEXIN 250 MG CAPSULE. PO SCH (13:00)
== END 2017-04-09 12:45 | disposition home or self-care (01) | DRG 871 ==
LOC: ER 21:18 → 6 SOUTH 23:14
PROVIDERS: ADMIT Internal Medicine; ATTEND Internal Medicine
DX: A41.9 Sepsis, unspecified organism (principal); N17.0 Acute kidney failure with tubular necrosis; L03.116 Cellulitis of left lower limb; Z68.43 Body mass index [BMI] 50.0-59.9, adult; F31.81 Bipolar II disorder; N17.9 Acute kidney failure, unspecified; R65.10 Systemic inflammatory response syndrome (SIRS) of non-infectious origin without acute organ dysfunction; E66.01 Morbid (severe) obesity due to excess calories; E03.9 Hypothyroidism, unspecified; F17.210 Nicotine dependence, cigarettes, uncomplicated; I12.9 Hypertensive chronic kidney disease with stage 1 through stage 4 chronic kidney disease, or unspecified chronic kidney disease; N18.3 Chronic kidney disease, stage 3 (moderate); Z82.49 Family history of ischemic heart disease and other diseases of the circulatory system
CPT/HCPCS: 36415; 70450; 71010; 80048; 81001; 81025; 83605; 84484; 85007; 85027; 87040; 87804; 93005; 96361; 96365; 96375; J0690; J1100; J1200; J1650; J1885; J2765; J3010; J3370; J3490; J7030; J7040; 99285-25

== ENCOUNTER 2018-07-02 18:09 | Emergency (ER) | payer OTHER ==
[~2018-07-02] VITALS: Ht 175.3 cm; Wt 161.0 kg
[~2018-07-02 18:09] MED LIST changes: +BUDE10.22 IH; +CEPH250C PO; +CITA40TA5 PO; +CLON0.3T PO; +DIVA500T2 PO; +FLUC100T PO; -HYDR-2672 PO; +HYDR-2766 PO; +LEVO75TA5 PO; +LISI-334 PO; +TERB250T PO
[2018-07-02] MEDS ORDERED: IV NORMAL SALINE 1000ML BAG 1,000 ML IV SCH (20:31)
--- NOTE | 2018-07-02 20:38 | PHYS DOC ---
Past Medical History Past Medical History: Bipolar, Depression, Hypertension, Hypothyroid, Other Additional Past Medical Histor: OBESITY, 2 SLIPPED DISCS IN BACK Past Surgical History: , Other Additional Past Surgical Histo: CARPAL TUNNEL RELEASE Alcohol Use: Occasionally Drug Use: None Adult General Chief Complaint Chief Complaint: DIZZY/LIGHT HEADED HPI HPI Patient is a 42-year-old female who presents to the emergency department for evaluation. She states that for the past week, she has had frequent episodes of dizziness. She has also had some waxing and waning head discomfort, primarily in her right posterior auricular area, where she feels some fullness. She does have obesity and there is some palpable soft tissue there, although it is unclear if this is a pathologic lymph node or just excessive adiposity. The patient has not had any vision changes, has not had any hearing changes or tinnitus. She has not had any neck pain per se, and has not had any fevers or chills. She describes her dizziness as a sense of lightheadedness and faintness , not so much as a sense of rotation. She has not had any nausea, vomiting, numbness, focal weakness. She has not had any chest pain or shortness of breath. There are no alleviating, or exacerbating factors to her symptoms otherwise. Review of Systems Review of Systems Constitutional: Denies fever or chills [] Eyes: Denies change in visual acuity, redness, or eye pain [] HENT: Denies nasal congestion or sore throat, the patient denies any otalgia or hearing changes [] Respiratory: Denies cough or shortness of breath [] Cardiovascular: The patient denies any shortness of breath, chest pain, palpitations, or orthopnea [] GI: Denies abdominal pain, nausea, vomiting, bloody stools or diarrhea [] : Denies dysuria or hematuria [] Musculoskeletal: Denies back pain or joint pain [] Integument: Denies rash or skin lesions [] Neurologic: Denies focal weakness or sensory changes [] Endocrine: Denies polyuria or polydipsia [] All other systems were reviewed and found to be within normal limits, except as documented in this note. Current Medications Current Medications Current Medications Medications (Trade) Dose Ordered Sig/Iza Start Time Stop Time Status Last Admin Dose Admin Sodium Chloride 1,000 ml @ 1,000 mls/hr Q1H 07/02/18 20:31 07/02/18 21:30 DC 07/02/18 20:59 1,000 MLS/HR Allergies Allergies Allergies Coded Allergies Type Severity Reaction Last Updated Verified No Known Drug Allergies 11/03/13 No Physical Exam Physical Exam PHYSICAL EXAM: CONSTITUTIONAL: Well developed, well nourished HEAD: normocephalic, atraumatic EENT: PERRL, EOMI. Conjunctivae normal color, sclerae non-icteric; moist mucous membranes. Tympanic membranes are normal bilaterally. There is no mastoid tenderness to palpation, although there is some soft tissue prominence in the mastoid region. NECK: Supple, non-tender; no meningismus. LUNGS: Lungs CTA, breathing even and unlabored. Normal air movement. HEART: Regular rate and rhythm, no murmur CHEST: No deformity; non-tender ABDOMEN: The abdomen is soft, and non-tender, no masses or bruits. EXTREM: Normal ROM; no deformity, no calf tenderness. Normal pulses palpable in all extremities. There is no pedal edema. SKIN: No rash; no diaphoresis NEURO: Alert; normal speech and cognition; CN's grossly intact; strength grossly intact without focal deficit. Visual maguire are intact by confrontation. Mnkojb-gocw-issnio and heel aldana testing are normal. BACK: No CVA TTP. Current Patient Data Vital Signs Vital Signs Date Time Temp Pulse Resp B/P (MAP) Pulse Ox O2 Delivery O2 Flow Rate FiO2 07/02/18 20:10 97.9 80 14 95 97.9 07/02/18 20:00 137/68 (91) Room Air Lab Values Laboratory Tests Test 07/02/18 20:20 07/02/18 20:36 07/02/18 20:45 Urine Collection Type Unknown Urine Color Yellow Urine Clarity Clear Urine pH 5.5 Urine Specific [place] 1.015 Urine Protein Negative mg/dL (NEG-TRACE) Urine Glucose (UA) Negative mg/dL (NEG) Urine Ketones (Stick) Negative mg/dL (NEG) Urine Blood Negative (NEG) Urine Nitrite Negative (NEG) Urine Bilirubin Negative (NEG) Urine Urobilinogen Dipstick 1.0 mg/dL (0.2 mg/dL) Urine Leukocyte Esterase Negative (NEG) Urine RBC 0 /HPF (0-2) Urine WBC 0 /HPF (0-4) Urine Squamous Epithelial Cells Mod /LPF Urine Bacteria Few /HPF (0-FEW) Urine Mucus Mod /LPF POC Urine HCG, Qualitative Hcg negative (Negative) White Blood Count 7.5 x10^3/uL (4.0-11.0) Red Blood Count 4.93 x10^6/uL (3.50-5.40) Hemoglobin 13.5 g/dL (12.0-15.5) Hematocrit 39.7 % (36.0-47.0) Mean Corpuscular Volume 81 fL (79-100) Mean Corpuscular Hemoglobin 27 pg (25-35) Mean Corpuscular Hemoglobin Concent 34 g/dL (31-37) Red Cell Distribution Width 14.6 % (11.5-14.5) H Platelet Count 340 x10^3/uL (140-400) Neutrophils (%) (Auto) 50 % (31-73) Lymphocytes (%) (Auto) 39 % (24-48) Monocytes (%) (Auto) 6 % (0-9) Eosinophils (%) (Auto) 4 % (0-3) H Basophils (%) (Auto) 1 % (0-3) Neutrophils # (Auto) 3.8 x10^3uL (1.8-7.7) Lymphocytes # (Auto) 2.9 x10^3/uL (1.0-4.8) Monocytes # (Auto) 0.4 x10^3/uL (0.0-1.1) Eosinophils # (Auto) 0.3 x10^3/uL (0.0-0.7) Basophils # (Auto) 0.1 x10^3/uL (0.0-0.2) Sodium Level 136 mmol/L (136-145) Potassium Level 3.8 mmol/L (3.5-5.1) Chloride Level 101 mmol/L (98-107) Carbon Dioxide Level 32 mmol/L (21-32) Anion Gap 3 (6-14) L Blood Urea Nitrogen 12 mg/dL (7-20) Creatinine 0.9 mg/dL (0.6-1.0) Estimated GFR (Cockcroft-Gault) 68.7 BUN/Creatinine Ratio 13 (6-20) Glucose Level 96 mg/dL (70-99) Calcium Level 9.1 mg/dL (8.5-10.1) Magnesium Level 2.0 mg/dL (1.8-2.4) Total Bilirubin 0.2 mg/dL (0.2-1.0) Aspartate Amino Transferase (AST) 15 U/L (15-37) Alanine Aminotransferase (ALT) 32 U/L (14-59) Alkaline Phosphatase 83 U/L (46-116) Creatine Kinase 53 U/L (26-192) Creatine Kinase MB (Mass) < 0.5 ng/mL (0.0-3.6) Creatine Kinase MB Relative Index % (0-4) Troponin I Quantitative < 0.017 ng/mL (0.000-0.055) Total Protein 7.7 g/dL (6.4-8.2) Albumin 3.4 g/dL (3.4-5.0) Albumin/Globulin Ratio 0.8 (1.0-1.7) L Thyroid Stimulating Hormone (TSH) 4.169 uIU/mL (0.358-3.74) H Free Thyroxine 1.00 ng/dL (0.76-1.46) Valproic Acid Level 17 mcg/mL (50-100) L Valproic Acid Last Dose Date 07/02/18 Valproic Acid Last Dose Time 2030 Laboratory Tests 07/02/18 20:45 Laboratory Tests 07/02/18 20:45 EKG EKG [Normal sinus rhythm at a rate of 73 beats for minute, normal axis, normal intervals, poor anterior R progression. There are lateral limb lead T-wave inversions, without acute ischemic ST/T changes.] The EKG is not significant change compared to patient's prior EKG from 03/2017. Radiology/Procedures Radiology/Procedures [PROCEDURE: CT HEAD WO CONTRAST CT Head W/O Contrast: History: DIZZINESS X 1 WEEK, SWELLING BACK OF HEAD, PRIOR SENT Comparison: April 06, 2017 Axial images were obtained without contrast. The ibanez and white matter appears normal and symmetrical for the patients age. There is no mass effect, extraaxial fluid collections or hydrocephalus. There is no gross bleed. There is no focal loss of ibanez-white matter distinction to suggest acute ischemia, i.e. stroke. There is a polyp versus mucosal retention cyst in the floor of the left maxillary sinus. Impression: No acute findings. ] Course & Med Decision Making Course & Med Decision Making Pertinent Labs and Imaging studies reviewed. (See chart for details) [9:55 PM:Patient remains stable. I discussed test results, the need for close follow-up, and return precautions.] Dragon Disclaimer Dragon Disclaimer This electronic medical record was generated, in whole or in part, using a voice recognition dictation system. Departure Departure Impression: Primary Impression: Dizziness Disposition: 01 HOME, SELF-CARE Condition: STABLE Referrals: DEV VORA MD (PCP) Patient Instructions: Dizziness WILTON URBAN MD Jul 02, 2018 20:38
[2018-07-02 20:43] LABS: BILIRUBIN,URINE NEGATIVE (NEG); CLARITY,URINE CLEAR; COLOR,URINE YELLOW; NITRITE,URINE NEGATIVE (NEG); PH,URINE 5.5; PROTEIN,URINE NEGATIVE (NEG-TRACE)
[2018-07-02 20:49] LABS: BACTERIA,URINE FEW /HPF (0-FEW); RBC,URINE 0 /HPF (0-2); WBC,URINE 0 /HPF (0-4)
[2018-07-02 20:50] LABS: SQUAMOUS EPITHELIAL CELL,UR MOD /LPF
[2018-07-02 21:06] LABS: BASO # 0.1 x10^3/uL (0.0-0.2); BASO % 1 % (0-3); EOS # 0.3 x10^3/uL (0.0-0.7); EOS % 4 % (0-3); HEMATOCRIT 39.7 % (36.0-47.0); HEMOGLOBIN 13.5 g/dL (12.0-15.5); LYMPH # 2.9 x10^3/uL (1.0-4.8); LYMPH % 39 % (24-48); MEAN CORPUSCULAR HEMOGLOBIN 27 pg (25-35); MEAN CORPUSCULAR HGB CONC 34 g/dL (31-37); MEAN CORPUSCULAR VOLUME 81 fL (79-100); MONO # 0.4 x10^3/uL (0.0-1.1); MONO % 6 % (0-9); NEUT # 3.8 x10^3uL (1.8-7.7); NEUT % 50 % (31-73); PLATELET COUNT 340 x10^3/uL (140-400); RED BLOOD COUNT 4.93 x10^6/uL (3.50-5.40); RED CELL DISTRIBUTION WIDTH 14.6 % (11.5-14.5); WHITE BLOOD COUNT 7.5 x10^3/uL (4.0-11.0)
[2018-07-02 21:19] LABS: ANION GAP 3 (6-14); BLOOD UREA NITROGEN 12 mg/dL (7-20); BUN/CREATININE RATIO 13 (6-20); CALCIUM 9.1 mg/dL (8.5-10.1); CARBON DIOXIDE 32 mmol/L (21-32); CHLORIDE 101 mmol/L (98-107); CREATININE 0.9 mg/dL (0.6-1.0); GFR 68.7; GLUCOSE 96 mg/dL (70-99); POTASSIUM 3.8 mmol/L (3.5-5.1); SODIUM 136 mmol/L (136-145)
[2018-07-02 21:25] LABS: ALBUMIN 3.4 g/dL (3.4-5.0); ALBUMIN/GLOBULIN RATIO 0.8 (1.0-1.7); ALK PHOS 83 U/L (46-116); ALT (SGPT) 32 U/L (14-59); AST (SGOT) 15 U/L (15-37); TOTAL BILIRUBIN 0.2 mg/dL (0.2-1.0); TOTAL PROTEIN 7.7 g/dL (6.4-8.2)
--- NOTE | 2018-07-02 21:28 | RAD ---
CT Head W/O Contrast: History: DIZZINESS X 1 WEEK, SWELLING BACK OF HEAD, PRIOR SENT Comparison: April 06, 2017 Axial images were obtained without contrast. The ibanez and white matter appears normal and symmetrical for the patients age. There is no mass effect, extraaxial fluid collections or hydrocephalus. There is no gross bleed. There is no focal loss of ibanez-white matter distinction to suggest acute ischemia, i.e. stroke. There is a polyp versus mucosal retention cyst in the floor of the left maxillary sinus. Impression: No acute findings. PQRS Compliance Statement: One or more of the following individualized dose reduction techniques were utilized for this examination: 1. Automated exposure control 2. Adjustment of the mA and/or kV according to patient size 3. Use of iterative reconstruction technique Electronically signed by: Moshe Jaeger III, MD (07/02/2018 9:24 PM) [facility]
[2018-07-02 21:34] LABS: THYROID STIM HORMONE (TSH) 4.169 uIU/mL (0.358-3.74)
[2018-07-02 21:39] LABS: VAL ACID 17 mcg/mL (50-100)
[2018-07-02 21:40] LABS: CREATINE KINASE 53 U/L (26-192)
--- NOTE | 2018-07-02 22:17 | EKG ---
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
[2018-07-02 22:18] VITALS: BP 120/71
== END 2018-07-02 22:20 | disposition home or self-care (01) ==
LOC: ER 18:09
DX: R42 Dizziness and giddiness (principal); F31.9 Bipolar disorder, unspecified; I10 Essential (primary) hypertension; E03.9 Hypothyroidism, unspecified; E66.9 Obesity, unspecified; Z68.43 Body mass index [BMI] 50.0-59.9, adult; Z98.890 Other specified postprocedural states
CPT/HCPCS: 36415; 70450; 80053; 80164; 81001; 81025; 82553; 83735; 84439; 84443; 84484; 85025; 93005; 96360; 99285; J7030

== ENCOUNTER → 2020-04-24 | Outpatient (CLI) | payer OTHER ==
[2019-05-30 11:00] VITALS: BP 147/67
[~2020-04-24] MED LIST changes: +ALBU2.5V8 NEB; +AMOX1TAB58 PO; +ATOR20TA PO; -HYDR-2766 PO; +HYDR-2769 PO; +LISI1TAB20 PO; +MELO15TA23 PO; +MELO7.5T29 PO; +TRAM50TA PO
--- NOTE | 2020-04-24 11:31 | KCIC ---
LUMBAR SPINE WO CONTRAST Date: 04/24/2020 9:30 AM Indication: Reason: LUMBAR HERNIATED DISC / Spl. Instructions: / History: Left leg pain, numbness, tingling and weakness. Sx almost one yr after inj. Comparison: 06/05/2016. Technique: Multi-planar multi-weighted magnetic resonance imaging of the lumbar spine was performed without intravenous contrast using the standard lumbar spine protocol. FINDINGS: The lumbar spine is normally aligned. No acute fracture. Mild multilevel degenerative disc desiccation and disc height loss. Fatty degenerative endplate changes at T11-12 and T12-L1. The conus terminates at a normal level. No abnormal signal is seen within the visualized distal spinal cord. No clumping of intrathecal nerve roots. No soft tissue abnormality in the visualized abdomen or pelvis. T12-L1: No disc bulge. No facet arthropathy. No significant spinal stenosis or neural foraminal narrowing. L1-L2: No disc bulge. No facet arthropathy. No significant spinal stenosis or neural foraminal narrowing. L2-L3: No disc bulge. No facet arthropathy. No significant spinal stenosis or neural foraminal narrowing. L3-L4: Disc bulge with annular tear. Mild facet arthropathy. No significant spinal stenosis. Mild left neural foraminal narrowing. L4-L5: Disc bulge. Mild facet arthropathy. No significant spinal stenosis. Mild bilateral neural foraminal narrowing. L5-S1: No disc bulge. No facet arthropathy. No significant spinal stenosis or neural foraminal narrowing. IMPRESSION: Mild lumbar spondylosis, detailed level by level above. Electronically signed by: Ortega King MD (04/24/2020 11:29 AM) [id number]
== END | disposition home or self-care (01) ==
LOC: KCIC MRI 09:05
PROVIDERS: ATTEND Family Medicine
DX: M47.896 Other spondylosis, lumbar region (principal); M47.816 Spondylosis without myelopathy or radiculopathy, lumbar region; M12.88 Other specific arthropathies, not elsewhere classified, other specified site; M48.061 Spinal stenosis, lumbar region without neurogenic claudication
CPT/HCPCS: 72148

== ENCOUNTER → 2020-04-27 | Outpatient (CLI) | payer OTHER ==
[2019-05-30 11:00] VITALS: BP 147/67
[~2020-04-27] MED LIST changes: +PERFLUTREN PROTEIN-A MICROSPHR 0.22 MG/ML 3 ML VIAL. IV ONE
--- NOTE | 2020-04-27 11:39 | CARD ---
MR#: [id number] Date of Study: 04/27/2020 Ordering Physician: BAKARI GARRETT, Referring Physician: BAKARI GARRETT, Tech: Brigid Greco [facility] APPROVED REPORT EXAM: Two-dimensional and M-mode echocardiogram with Doppler and color Doppler. Other Information Quality : Technically Limited Technically limited study due to morbid obesity INDICATION Murmur Echo Enhancing Agent Agent/Amount Used: Optison 4mL 2D DIMENSIONS RVDd2.5 (2.9-3.5cm)Left Atrium(2D)2.8 (1.6-4.0cm) IVSd1.0 (0.7-1.1cm)Aortic Root(2D)2.3 (2.0-3.7cm) LVDd4.1 (3.9-5.9cm)LVOT Diameter2.0 (1.8-2.4cm) PWd1.0 (0.7-1.1cm)LVDs3.0 (2.5-4.0cm) FS (%) 26.6 %SV39.0 ml LVEF(%)60.0 (>50%) Aortic Valve AoV Peak Jhon.188.1cm/sAoV VTI36.8cm AO Peak GR.14.2mmHgLVOT Peak John.156.4cm/s AO Mean GR.8mmHgAVA (VMAX)2.51cm2 KERRY (VTI)2.90cm2 Mitral Valve MV E Xncmuxen713.7cm/sMV DECEL CMNV903aw MV A Pjzjsuvb903.9cm/sE/A Ratio0.9 Pulmonary Vein S1 Tcvpmeac77.2cm/sD2 Iwvafymo18.3cm/s LEFT VENTRICLE The left ventricle is normal size. There is normal left ventricular wall thickness. The left ventricu lar systolic function is normal and the ejection fraction is within normal range. The Ejection Fracti on is 55-60%. There is grossly normal LV segmental wall motion. Transmitral Doppler flow pattern is G rade I-abnormal relaxation pattern. RIGHT VENTRICLE The right ventricle is normal size. The right ventricular systolic function is normal. ATRIA The left atrium size is normal. The right atrium size is normal. The interatrial septum is intact wit h no evidence for an atrial septal defect or patent foramen ovale as noted on 2-D or Doppler imaging. AORTIC VALVE The aortic valve is not well visualized but appearst to be functioning normally by Doppler interrogat ion. Doppler and Color Flow revealed no significant aortic regurgitation. There is no significant aor tic valvular stenosis. MITRAL VALVE Not well visualized. There is no evidence of mitral valve prolapse. There is no mitral valve stenosis . Doppler and Color Flow revealed no mitral valve regurgitation noted. TRICUSPID VALVE Not well visualized. Doppler and Color Flow revealed no tricuspid valve regurgitation noted. There is no tricuspid valve stenosis. PULMONIC VALVE The pulmonic valve is not well visualized. GREAT VESSELS The aortic root is normal in size. The ascending aorta is not well seen. IVC not well visualized. PERICARDIAL EFFUSION There is no evidence of significant pericardial effusion. Critical Notification Critical Value: No <Conclusion> The left ventricular systolic function is normal and the ejection fraction is within normal range. Th e Ejection Fraction is 55-60%. There is grossly normal LV segmental wall motion. Technically very limited study despite contrast use. Grossly no significant valvular disease. Signed by : Valeriy Coppola, Electronically Approved : 04/27/2020 11:39:02
== END | disposition home or self-care (01) ==
LOC: ECHO 08:32
PROVIDERS: ATTEND Internal Medicine Cardiovascular Disease
DX: R01.1 Cardiac murmur, unspecified (principal)
CPT/HCPCS: C8929; Q9956

== ENCOUNTER 2020-05-07 13:06 | Emergency (ER) | payer OTHER ==
[~2020-05-07] VITALS: Ht 175.3 cm; Wt 125.0 kg
[~2020-05-07 13:06] MED LIST changes: -PERFLUTREN PROTEIN-A MICROSPHR 0.22 MG/ML 3 ML VIAL. IV ONE
[2020-05-07] MEDS ORDERED: diazePAM 5 MG TABLET PO ONE (13:30)
--- NOTE | 2020-05-07 13:39 | PHYS DOC ---
Past Medical History Past Medical History: Bipolar, Depression, Hypertension, Hypothyroid, Other Additional Past Medical Histor: OBESITY, 2 SLIPPED DISCS IN BACK,FRACTURED COCCYX Past Surgical History: , Other Additional Past Surgical Histo: CARPAL TUNNEL RELEASE Smoking Status: Current Every Day Smoker Alcohol Use: Occasionally Drug Use: None General Adult EDM: Chief Complaint: DIZZY/LIGHT HEADED HPI: HPI: Patient is a 44-year-old female with a long history of anxiety/panic attacks who presents with dizziness. She has had a lot of dizziness over the course of the last month or so. She states she has been to her primary care physician who started her on anxiety medication for her dizziness. She is recently had a cardiac work-up including an echocardiogram which was normal. She also states that she gets a sensation that things are closing in around her she also has some tightness in her chest. She denies any nausea or vomiting. She has not had any fever chills or sweats. [] Review of Systems: Review of Systems: Constitutional: Denies fever or chills. [] Eyes: Denies change in visual acuity. [] HENT: Denies nasal congestion or sore throat. [] Respiratory: Denies cough or shortness of breath. [] Cardiovascular: Denies chest pain or edema. [] GI: Denies abdominal pain, nausea, vomiting, bloody stools or diarrhea. [] : Denies dysuria. [] Musculoskeletal: Denies back pain or joint pain. [] Integument: Denies rash. [] Neurologic: Reports dizziness. [] Endocrine: Denies polyuria or polydipsia. [] Lymphatic: Denies swollen glands. [] Psychiatric: Anxiety [] Heart Score: Risk Factors: Risk Factors: DM, Current or recent (<one month) smoker, HTN, HLP, family history of CAD, obesity. Risk Scores: Score 0 - 3: 2.5% MACE over next 6 weeks - Discharge Home Score 4 - 6: 20.3% MACE over next 6 weeks - Admit for Clinical Observation Score 7 - 10: 72.7% MACE over next 6 weeks - Early Invasive Strategies Allergies: Allergies: Allergies Coded Allergies Type Severity Reaction Last Updated Verified No Known Drug Allergies 11/03/13 No Physical Exam: PE: Constitutional: Well developed, well nourished, anxious very tearful. [] HENT: Normocephalic, atraumatic, bilateral external ears normal, oropharynx moist, no oral exudates, nose normal. [] Eyes: PERRLA, EOMI, conjunctiva normal, no discharge. [] Neck: Normal range of motion, no tenderness, supple, no stridor. [] Cardiovascular:Heart rate regular rhythm, no murmur [] Lungs & Thorax: Bilateral breath sounds clear to auscultation [] Abdomen: Morbidly obese, bowel sounds normal, soft, no tenderness, no masses, no pulsatile masses. [] Skin: Warm, dry, no erythema, no rash. [] Back: No tenderness, no CVA tenderness. [] Extremities: No tenderness, no cyanosis, no clubbing, ROM intact, no edema. [] Neurologic: Alert and oriented X 3, normal motor function, normal sensory function, no focal deficits noted. [] Psychologic: Strongly anxious. [] EKG: EKG: [] Radiology/Procedures: Radiology/Procedures: [] Course & Med Decision Making: Course & Med Decision Making Pertinent Labs and Imaging studies reviewed. (See chart for details) [] Dragon Disclaimer: Dragon Disclaimer: This electronic medical record was generated, in whole or in part, using a voice recognition dictation system. Departure Departure Impression: Primary Impression: Panic anxiety syndrome Additional Impression: Anxiety about health Disposition: 01 HOME, SELF-CARE Condition: STABLE Referrals: Camila CANTU MD (PCP) Patient Instructions: Anxiety and Panic Attacks Additional Instructions: It is important you follow with Dr. Cantu this week for a recheck. I am sure that he will want to talk to you about medication adjustments at that time. Justicifation of Admission Dx: Justifications for Admission: Justification of Admission Dx: No CLARKE MICHAUD DO May 07, 2020 13:39
[2020-05-07 14:00] VITALS: BP 155/94
== END 2020-05-07 14:19 | disposition home or self-care (01) ==
LOC: ER 13:06
DX: F41.0 Panic disorder [episodic paroxysmal anxiety] (principal); F41.9 Anxiety disorder, unspecified; F31.9 Bipolar disorder, unspecified; I10 Essential (primary) hypertension; E03.9 Hypothyroidism, unspecified; F17.200 Nicotine dependence, unspecified, uncomplicated; E66.9 Obesity, unspecified; Z68.41 Body mass index [BMI] 40.0-44.9, adult
CPT/HCPCS: 99283; 99284

== ENCOUNTER 2020-06-27 08:04 | Emergency (ER) | payer OTHER | END 2020-06-27 08:28 | disposition left against medical advice (07) | LOC: ER 08:04 | DX: U07.1 COVID-19 (principal); R06.02 Shortness of breath; M79.10 Myalgia, unspecified site; R68.83 Chills (without fever); Z53.21 Procedure and treatment not carried out due to patient leaving prior to being seen by health care provider ==

== ENCOUNTER → 2020-12-15 | Outpatient (CLI) | payer OTHER ==
--- NOTE | 2020-12-15 16:38 | KCIC ---
Exam performed: X-ray right elbow, right knee and left hip. HISTORY: Left hip, knee and elbow pain DATE OF SERVICE: 12/15/2020. COMPARISON: None available Findings : AP, lateral and oblique views of the right elbow demonstrates normal alignment. There is no acute fra cture or dislocation. No soft tissue swelling or foreign body seen. AP, lateral and oblique views of the right knee is obtained. Normal alignment is preserved. There is no acute fracture or dislocation. Mild osteophytes are seen emanating from the articular surface of p atella. There is a well-defined lucent lesion with surrounding sclerosis in the medial femoral condyl e. No associated periosteal reaction is seen. Single AP view pelvis and AP and frog-leg lateral view of the left hip demonstrate normal alignment o f the hip joints. There are early degenerative changes about the left hip. There is no acute fracture or dislocation. No soft tissue swelling or foreign body seen. IMPRESSION: No acute abnormality seen in the right elbow. Well-defined lucent lesion with surrounding sclerosis in the medial femoral condyle.This has a fairly benign appearance and could be related to nonossifying fibroma, however if symptoms persist, evaluat ion with MRI of the right knee may be obtained. Early degenerative changes involving the left hip. Electronically signed by: Juani Torres MD (12/15/2020 4:36 PM) [id number]
== END ==
LOC: KCIC 14:23
PROVIDERS: ATTEND Family Medicine
DX: M16.12 Unilateral primary osteoarthritis, left hip (principal); M25.761 Osteophyte, right knee; M25.521 Pain in right elbow
CPT/HCPCS: 73070; 73502; 73562

== ENCOUNTER → 2021-01-29 | Outpatient (CLI) | payer OTHER ==
[~2021-01-29] MED LIST changes: -LISI-334 PO; +LISI20TA18 PO
--- NOTE | 2021-01-29 11:02 | KCIC ---
Examination: MRI of the right knee without contrast HISTORY: History of medial right knee pain COMPARISON: None available TECHNIQUE: Multiplanar, multisequence MR imaging of the right knee without contrast FINDINGS: The anterior cruciate ligament, posterior cruciate ligament appears intact. There is oblique increase d signal identified in the posterior horn of the medial meniscus likely tear with 8 mm cystic structu re extending posterior medially from the posterior horn of the medial meniscus likely meniscal cyst. The lateral meniscus appears intact. The medial collateral ligament appears intact. Lateral collatera l ligamentous complex including the fibular collateral ligament, biceps femoris tendon, popliteus ten don appears intact. The extensor mechanism appears intact. There is deep fissuring of cartilage identified in the patello femoral compartments. The medial, lateral retinaculum appears intact. Moderate knee joint effusion. Mild increased T2 signal identified in the soft tissue about the knee joint anteriorly. Multiple subc hondral cystic changes identified in the patella superiorly likely degenerative changes. There is a 1 cm cystic structure identified in the posterior medial femoral condyle likely subchondra l cyst. Mild superficial fraying of cartilage in the medial, lateral compartments. Moderate joint space loss identified in the medial, lateral, patellofemoral compartments. IMPRESSION: 1. Tear of the posterior horn of the medial meniscus with 8 mm cystic structure extending posteriorly from the posterior horn the medial meniscus likely meniscal cyst. 2. Tricompartmental degenerative changes, most in the patellofemoral compartment. 3. Grade II chondromalacia patella. Minimal chondromalacia medial, lateral compartments. 4. Moderate knee joint effusion. There is increased T2 signal in the soft tissue anterior to the knee joint likely soft tissue edema or cellulitis. 5. Subchondral cystic changes identified in the patella and posterior medial femoral condyle likely d egenerative changes. Electronically signed by: Rico Hsu MD (01/29/2021 10:59 AM) [id number]
== END ==
LOC: KCIC MRI 09:57
PROVIDERS: ATTEND Orthopaedic Surgery
DX: M17.11 Unilateral primary osteoarthritis, right knee (principal); M25.461 Effusion, right knee
CPT/HCPCS: 73721

== ENCOUNTER 2021-03-16 08:28 | Day surgery (SDC) | payer OTHER ==
[~2021-03-16] VITALS: Ht 171.4 cm; Wt 158.8 kg
[~2021-03-16 08:28] MED LIST changes: +BUPIVACAINE-EPI 0.5% 30 ML VIAL KIT. ONE; +CLONAZEPAM1 MG PO; +HYDROmorphone 2 MG/ML VIAL IVP PRN; +IBUP-1060 PO; +IV RINGERS,LACTATED 1000ML 1,000 ML IV SCH; +MORPHINE SULFATE 2 MG/ML VIAL. IVP PRN; +PROCHLORPERAZINE 10 MG/2 ML VIAL. IVP PRN; +ceFAZolin SODIUM 3 GM in IV DEXTROSE 5% 100ML 100 ML IV PRN; +fentaNYL PF VIAL 100 MCG/2 ML VIAL IVP PRN
[2021-03-16] MEDS ORDERED: ONDANSETRON PF 4 MG/2 ML VIAL. ONE ×2 (08:37→11:10)
[2021-03-16] MEDS ORDERED: LIDOCAINE 2% PF 5 ML VIAL. ONE (08:37)
[2021-03-16] MEDS ORDERED: PROPOFOL 10 MG/ML (20ML) VIAL. IV ONE (08:37)
[2021-03-16] MEDS ORDERED: DEXAMETHASONE SOD PHOS 4 MG/ML VIAL ONE (08:37)
[2021-03-16] MEDS ORDERED: fentaNYL PF VIAL 100 MCG/2 ML VIAL ONE ×3 (08:38→10:46)
[2021-03-16] MEDS ORDERED: SUCCINYLCHOLINE 200 MG/10 ML VIAL. ONE (08:46)
[2021-03-16] MEDS ORDERED: HYDR-2765 PO (08:58)
--- NOTE | 2021-03-16 08:59 | DISCH ---
DISCHARGE INSTRUCTIONS Condition on Discharge Condition on Discharge: Stable Activity After Discharge Activity Instructions for Disc: Activity as tolerated Exercise Instruction after Dis: Progress as tolerated Driving Instructions after Dis: Do not drive today Weight Bearing Status after Di: As tolerated Diet after Discharge Diet after Discharge: Cardiac, Regular Diet Texture: Regular Swallowing Supervision: None needed Wound Incision Care Wound/Incision Care: Change dressing (May remove dressing in 2 days may then shower no soaking until sutures removed) Contacting the DRDali after DC Call your doctor for: Concerns you may have Follow-Up Follow up with: Dr. Bethea or Bethany 7 to 10 days Treatment/Equipment after DC Adaptive Equipment Issued: None ORLIN BETHEA MD Mar 16, 2021 08:59
--- NOTE | 2021-03-16 09:12 | EKG ---
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1975 Requested By: ORLIN PRATHER Order Number: [id number] Reading MD: Measurements Intervals [place] Rate: 82 P: 36 [place]: 186 QRS: -22 QRSD: 78 T: 84 QT: 370 QTc: 435 Interpretive Statements SINUS RHYTHM LEFT ATRIAL ABNORMALITY LEFTWARD AXIS QRS(T) CONTOUR ABNORMALITY CONSISTENT WITH ANTERIOR INFARCT PROBABLY OLD T ABNORMALITY IN HIGH LATERAL LEADS ABNORMAL ECG RI6.02 Compared to ECG 05/28/2019 09:58:35 Atrial abnormality now present Left-axis deviation now present T-wave abnormality now present Sinus tachycardia no longer present Left ventricular hypertrophy no longer present Myocardial infarct finding still present
[2021-03-16 09:27] LABS: BASO % 1 % (0-3); EOS # 0.1 x10^3/uL (0.0-0.7); EOS % 2 % (0-3); HEMATOCRIT 38.2 % (36.0-47.0); LYMPH # 1.6 x10^3/uL (1.0-4.8); LYMPH % 30 % (24-48); MEAN CORPUSCULAR HEMOGLOBIN 29 pg (25-35); MEAN CORPUSCULAR HGB CONC 34 g/dL (31-37); MEAN CORPUSCULAR VOLUME 84 fL (79-100); MONO # 0.5 x10^3/uL (0.0-1.1); MONO % 9 % (0-9); NEUT # 3.2 x10^3/uL (1.8-7.7); NEUT % 59 % (31-73); PLATELET COUNT 301 x10^3/uL (140-400); RED BLOOD COUNT 4.57 x10^6/uL (3.50-5.40); RED CELL DISTRIBUTION WIDTH 13.7 % (11.5-14.5); WHITE BLOOD COUNT 5.4 x10^3/uL (4.0-11.0)
[2021-03-16] MEDS ORDERED: MIDAZOLAM HCL/PF 2 MG/2 ML VIAL. ONE (09:36)
[2021-03-16 09:38] LABS: CALCIUM 8.6 mg/dL (8.5-10.1); CREATININE 0.6 mg/dL (0.6-1.0); GFR 108.1; POTASSIUM 4.1 mmol/L (3.5-5.1)
[2021-03-16] MEDS ORDERED: SEVOFLURANE 31 TO 60 MINUTES. IH ONE (10:01)
--- NOTE | 2021-03-16 10:03 | RAD ---
XR CHEST 2V History: Preop. Comparison: None. Technique: PA and lateral chest radiographs. Findings: The lungs are adequately and symmectrically inflated. No airspace consolidation, pleural effusion or pneumothorax. The cardiomediastinal silhoutte and pulmonary vasculature are within normal limits. Sof t tissues and osseous structures are unremarkable. Impression: 1. No acute cardiopulmonary process. Electronically signed by: Nathan Webber MD (03/16/2021 10:01 AM) [facility]
[2021-03-16 11:10] VITALS: BP 147/85
[2021-03-16] MEDS ORDERED: ONDANSETRON PF 4 MG/2 ML VIAL. IVP ONE (11:15)
[2021-03-16] MEDS ORDERED: HYDROcodone/APAP 7.5/325MG 1 TAB TABLET PO ONE (11:15)
--- NOTE | 2021-03-16 17:14 | PDOC4 ---
Operative Note Operative Note Date of surgery: 03/16/2021 Preoperative diagnosis: Right knee meniscus tear Postoperative diagnosis: Same with a displaceable tear of the anterior horn of the lateral meniscus Operative procedure: Left knee arthroscopy partial lateral meniscectomy Surgeon: [employer] Manager: Eriberto goodson Anesthesia: General Estimated blood loss: 20cc Complications: None Operative indications: Please see my orthopedic clinic note for detailed operative indications and note that she was having mechanical symptoms of the knee unresponsive to nonoperative management. MRI had shown suspicion of meniscus tear as well as chondromalacia and I had discussed risk benefits postoperative course of the procedure including the possibility of infection nerve or blood vessel damage continued pain and the fact that I cannot undo degenerative changes with the procedure. All her questions were answered she wishes to proceed with surgical evaluation and treatment Operative text: Patient was identified procedure verified patient placed in the supine position on the operating table. After adequate amounts of general anesthesia were administered the right lower extremity was prepped and draped in standard sterile fashion with a thigh tourniquet. After timeout was performed patient procedure identified and verified the right lower extremity was exsanguinated by Esmarch bandage tourniquet inflated to 300 mmHg a lateral portal was established medial portal established using spinal needle localization and the knee joint was systematically examined. Medial meniscus was probed and found to be intact and was carefully examined with the arthroscopic probe particularly at the posterior root and while she did have jessy e mild chondromalacia no debridement required ACL was intact. Lateral meniscus however showed fraying of the anterior horn of the lateral meniscus that was trimmed back to stable tissue and radiused appropriately using the arthroscopic punch and shaver. The lateral femoral condyle was carefully evaluated and noted to have minimal chondromalacia. The knee was again toured to ensure no loose bodies remained and was drained of arthroscopic fluid. Portals and fat pad were infused with half percent Marcaine with epinephrine and portals closed with nylon suture. Soft sterile dressings were applied toes were noted be warm pink following deflation of the tourniquet. Eriberto goodson was present for the procedure and assisted in patient prepping draping positioning closure and dressings ORLIN PRATHER MD Mar 16, 2021 17:14
== END 2021-03-16 11:55 | disposition home or self-care (01) ==
LOC: SURG 08:28
PROVIDERS: ATTEND Orthopaedic Surgery
DX: S83.241A Other tear of medial meniscus, current injury, right knee, initial encounter (principal); M94.261 Chondromalacia, right knee; E78.00 Pure hypercholesterolemia, unspecified; E03.9 Hypothyroidism, unspecified; I10 Essential (primary) hypertension; J45.909 Unspecified asthma, uncomplicated; G47.30 Sleep apnea, unspecified; F41.9 Anxiety disorder, unspecified; F32.9 Major depressive disorder, single episode, unspecified; F17.210 Nicotine dependence, cigarettes, uncomplicated; Z98.51 Tubal ligation status; Z98.890 Other specified postprocedural states; Z79.899 Other long term (current) drug therapy; Z72.89 Other problems related to lifestyle; X58.XXXA Exposure to other specified factors, initial encounter; Y93.89 Activity, other specified; Y92.89 Other specified places as the place of occurrence of the external cause; Y99.8 Other external cause status
CPT/HCPCS: 29881; 36415; 71046; 80048; 81025; 85025; 93005; A4930; J0330; J1100; J2250; J2405; J2704; J3010; A6454

== ENCOUNTER 2022-02-01 07:52 | Emergency (ER) | payer MEDICAID ==
[~2022-02-01] VITALS: Ht 175.3 cm; Wt 131.3 kg
[~2022-02-01 07:52] MED LIST changes: -BUPIVACAINE-EPI 0.5% 30 ML VIAL KIT. ONE; -CITA40TA5 PO; +CITA40TA6 PO; +CYCL10TA19 PO; -CYCL10TA2 PO; -DULO60CA6 PO; +DULO60CA7 PO; +HYDR-2765 PO; -HYDROmorphone 2 MG/ML VIAL IVP PRN; -IV RINGERS,LACTATED 1000ML 1,000 ML IV SCH; -LISI1TAB20 PO; +LISI1TAB39 PO; -LISI2.5T PO; +LISI2.5T12 PO; -MORPHINE SULFATE 2 MG/ML VIAL. IVP PRN; -PROCHLORPERAZINE 10 MG/2 ML VIAL. IVP PRN; -ceFAZolin SODIUM 3 GM in IV DEXTROSE 5% 100ML 100 ML IV PRN; -fentaNYL PF VIAL 100 MCG/2 ML VIAL IVP PRN
[2022-02-01] MEDS ORDERED: diazePAM 5 MG TABLET PO ONE (09:15)
[2022-02-01 09:33] LABS: BILIRUBIN,URINE SMALL (NEG); CLARITY,URINE CLEAR; COLOR,URINE AMBER
[2022-02-01 09:34] LABS: NITRITE,URINE NEGATIVE (NEG); PH,URINE 5.5 (<5.0-8.0); PROTEIN,URINE 100 mg/dL (NEG-TRACE)
[2022-02-01 09:37] LABS: BACTERIA,URINE FEW /HPF (0-FEW); RBC,URINE 0 /HPF (0-2); WBC,URINE OCC /HPF (0-4)
--- NOTE | 2022-02-01 10:18 | RAD ---
CT CHEST_ABDOMEN_ AND PELVIS WITHOUT CONTRAST History: Right flank pain. Rib pain. Technique: CT of the chest, abdomen and pelvis were performed without contrast. Coronal and sagittal reconstructions were performed. Exposure: One or more of the following individualized dose reduction techniques were utilized for thi s examination: 1. Automated exposure control 2. Adjustment of the mA and/or kV according to patient size 3. Use of iterative reconstruction technique. Comparison: None Findings: Chest: No pathologic lymphadenopathy. Minimal atheromatous plaque within the aorta. No coronary arter y calcifications. No consolidation or pleural effusion. No pneumothorax. 3 mm right upper lobe pulmonary nodule (series 2 image 42). 2 mm right middle lobe nodule pleural-bas ed (image 56). 2 mm left upper lobe fissure-based nodule (image 73). Abdomen and pelvis: The liver, spleen, adrenal glands, pancreas and gallbladder are unremarkable. No biliary ductal dilatation. Small nonobstructing right renal calculus measures 5 mm. No hydronephrosis. No ureteral or urinary bl adder calculus. Decompressed or bladder. Normal appendix. No evidence of bowel obstruction. Postoperative changes gastric bypass. No pathologi c lymphadenopathy. No ascites. Periumbilical fat-containing hernia measures 3.1 x 3.0 cm with fascial defect measuring 1.3 cm. Bones: No pathologic osseous lesions. Impression: Chest CT: 1. No acute thoracic pathology. 2. Small pulmonary nodules. Recommend one-year follow-up chest CT without contrast. Abdomen and pelvis CT: 1. No acute abdominal or pelvic pathology. No obstructing urolithiasis. 2. Small right intrarenal calculus. Electronically signed by: Justin Azul DO (02/01/2022 10:15 AM) [id number]
[2022-02-01] MEDS ORDERED: CYCL10TA19 PO (10:36)
--- NOTE | 2022-02-01 10:37 | PHYS DOC ---
Past Medical History Past Medical History: Bipolar, Depression, Hypertension, Hypothyroid, Other Additional Past Medical Histor: OBESITY, 2 SLIPPED DISCS IN BACK,FRACTURED COCCYX, GASTRIC BYPASS Past Surgical History: , Other Additional Past Surgical Histo: CARPAL TUNNEL RELEASE, GASTRIC BYPASS OCT 2021 Smoking Status: Current Every Day Smoker Additional Information: VAPE DAILY TWICE Alcohol Use: Occasionally Drug Use: None General Adult EDM: Chief Complaint: BACK PAIN - NO INJURY HPI: HPI: 46 yo F has medical history of hypertension, asthma, bipolar disorder, obesity, low back pain and anxiety, presents to the ED with complaints of intermittent, sharp, stabbing, nonradiating right flank pain that started approximately 1.5 weeks ago, worse with movement, coughing, laughing or breathing hard. States pain is alleviated when sitting straight up. Pain started while she was sitting down at work. Reports pain is tender to the touch. No relief with hydrocodone 5/325 mg, 1 tablet at 10 PM and another at 3:30 AM. Also took Motrin 800 this morning at 6:30 AM. Reports weight loss surgery in October 2021 and has lost 75 pounds. Cannot recall any injury or increased physical activity. Denies any history of trauma, history of IV drug use, history of cancer, history of sciatica, history of malignancy, history of immunocompromise state, neurologic complaints including saddle anesthesia, weakness or paresthesias, urinary retention, bowel or bladder incontinence, night pain, fever/chills/night sweats, unexplained weight loss, anticoagulants or coagulopathy, prolonged steroid use, older age, presence of contusions or abrasions. Review of Systems: Review of Systems: Constitutional: Denies fever or chills. [] Eyes: Denies change in visual acuity. [] HENT: Denies nasal congestion or sore throat. [] Respiratory: Denies cough or shortness of breath. [] Cardiovascular: Denies chest pain or edema. [] GI: Denies abdominal pain, nausea, vomiting, bloody stools or diarrhea. [] : Denies dysuria, hematuria, suprapubic pain or vaginal bleeding Musculoskeletal: Denies midline back pain or joint pain. [] Integument: Denies rash or diaphoresis Neurologic: Denies headache, focal weakness or sensory changes. [] Endocrine: Denies polyuria or polydipsia. [] Lymphatic: Denies swollen glands. [] Psychiatric: Denies depression or anxiety. [] Heart Score: C/O Chest Pain: No Risk Factors: Risk Factors: DM, Current or recent (<one month) smoker, HTN, HLP, family history of CAD, obesity. Risk Scores: Score 0 - 3: 2.5% MACE over next 6 weeks - Discharge Home Score 4 - 6: 20.3% MACE over next 6 weeks - Admit for Clinical Observation Score 7 - 10: 72.7% MACE over next 6 weeks - Early Invasive Strategies Current Medications: Current Medications Medications (Trade) Dose Ordered Sig/Iza Start Time Stop Time Status Last Admin Dose Admin Diazepam (Valium) 10 mg 1X ONCE 02/01/22 09:15 02/01/22 09:16 DC 02/01/22 09:15 10 MG Allergies: Allergies: Allergies Coded Allergies Type Severity Reaction Last Updated Verified No Known Drug Allergies 02/01/22 No Physical Exam: PE: Constitutional: Well developed, well nourished, no acute distress, non-toxic appearance, HENT: Normocephalic, atraumatic, Eyes: EOMI, conjunctiva normal, no discharge. Neck: Normal range of motion, supple, Cardiovascular: S1/2 present, regular rhythm Lungs & Thorax: Speaking in full sentences, bilateral equal chest rise, no tachypnea or increased work of breathing Abdomen: soft, no tenderness, truncal obesity Skin: Warm, dry, no erythema, no rash. [] Back: No midline tenderness, right reproducible CVA tenderness Extremities: No tenderness, no cyanosis, Neurologic: Alert and oriented X 3, normal motor function, normal sensory function, no focal deficits noted. [] Psychologic: Affect normal, judgement normal, mood normal. [] Current Patient Data: Labs: Laboratory Tests Test 02/01/22 08:30 02/01/22 08:48 Urine Collection Type Unknown Urine Color Adali Urine Clarity Clear Urine pH 5.5 (<5.0-8.0) Urine Specific [place] >=1.030 (1.000-1.030) Urine Protein 100 mg/dL (NEG-TRACE) Urine Glucose (UA) Negative mg/dL (NEG) Urine Ketones (Stick) Trace mg/dL (NEG) Urine Blood Negative (NEG) Urine Nitrite Negative (NEG) Urine Bilirubin Small (NEG) Urine Urobilinogen Dipstick 2.0 mg/dL (0.2 mg/dL) Urine Leukocyte Esterase Negative (NEG) Urine RBC 0 /HPF (0-2) Urine WBC Occ /HPF (0-4) Urine Squamous Epithelial Cells Many /LPF Urine Bacteria Few /HPF (0-FEW) POC Urine HCG, Qualitative Hcg negative (Negative) Vital Signs: Vital Signs Date Time Temp Pulse Resp B/P (MAP) Pulse Ox O2 Delivery O2 Flow Rate FiO2 02/01/22 09:54 79 16 147/65 (92) 100 Room Air 02/01/22 08:21 97.8 97.8 EKG: EKG: [] Radiology/Procedures: Radiology/Procedures: IMAGING REPORT Signed PATIENT: NARCISO SMITH LACCOUNT: [id number] : 1975 LOCATION: ER AGE: 46 SEX: F EXAM STATUS: REG ER ORD. PHYSICIAN: DAVID CARREON DO REASON: r flank pain/rib pain PROCEDURE: CT CHEST ABDOMEN PELVIS WO CT CHEST_ABDOMEN_ AND PELVIS WITHOUT CONTRAST History: Right flank pain. Rib pain. Technique: CT of the chest, abdomen and pelvis were performed without contrast. Coronal and sagittal reconstructions were performed. Exposure: One or more of the following individualized dose reduction techniques were utilized for this examination: 1. Automated exposure control 2. Adjustment of the mA and/or kV according to patient size 3. Use of iterative reconstruction technique. Comparison: None Findings: Chest: No pathologic lymphadenopathy. Minimal atheromatous plaque within the aorta. No coronary artery calcifications. No consolidation or pleural effusion. No pneumothorax. 3 mm right upper lobe pulmonary nodule (series 2 image 42). 2 mm right middle lobe nodule pleural-based (image 56). 2 mm left upper lobe fissure-based nodule (image 73). Abdomen and pelvis: The liver, spleen, adrenal glands, pancreas and gallbladder are unremarkable. No biliary ductal dilatation. Small nonobstructing right renal calculus measures 5 mm. No hydronephrosis. No ureteral or urinary bladder calculus. Decompressed or bladder. Normal appendix. No evidence of bowel obstruction. Postoperative changes gastric bypass. No pathologic lymphadenopathy. No ascites. Periumbilical fat-containing hernia measures 3.1 x 3.0 cm with fascial defect measuring 1.3 cm. Bones: No pathologic osseous lesions. Impression: Chest CT: 1. No acute thoracic pathology. 2. Small pulmonary nodules. Recommend one-year follow-up chest CT without contrast. Abdomen and pelvis CT: 1. No acute abdominal or pelvic pathology. No obstructing urolithiasis. 2. Small right intrarenal calculus. Electronically signed by: Justin Azul DO (02/01/2022 10:15 AM) [id number] DICTATED and SIGNED BY: JUSTIN AZUL DO DATE: 02/01/22 1002 Course & Med Decision Making: Course & Med Decision Making Pertinent Labs and Imaging studies reviewed. (See chart for details) Concern for focal, right flank pain that is reproducible and worse with movements. I do suspect patient's pain more musculoskeletal related, likely intercostal muscle strain. Improvement of pain with Valium given in emergency department. Patient has taken Flexeril in the past and reports this is helped with musculoskeletal injuries. We will do this in addition to lidocaine patches. Incidental finding of right nephrolithiasis, no RBCs or blood on CT. Patient is hemodynamically stable, well-appearing and afebrile. Will discharge home with strict ED return precautions were given for severe pain, fever or intractable nausea or vomiting. Encouraged urgent outpatient follow-up with PMD for reevaluation. Life-threatening processes were considered but are low suspicion at this time, given history, physical exam and ED workup. Pt was educated on all prescription medications and adverse effects. All patient's questions were answered and pt was stable at time of discharge. Life/limb-threatening differential includes but is not limited to, aortic dissection/aneurysm, cauda equina syndrome, transverse myelitis, spinal cord/epidural compression syndromes, discitis, spinal stenosis, epidural abscess or hematoma, osteomyelitis, disc herniation, surgical abdomen, stable or unstable fracture, renal/ureteral colic, sepsis, meningitis, musculoskeletal injury, traumatic injury, intraabdominal/retroperitoneal or pelvic bleeding. I have spoken with the patient and/or caregivers. I explained the patient's condition, diagnoses and treatment plan based on the information available to me at this time. I have answered the patient and/or caregiver's questions and addressed any concerns. The patient and/or caregivers have a good understanding of patient's diagnosis, condition and treatment plan as can be expected at this point. Vital signs have been stable. Patient's condition is stable and appropriate for discharge from the emergency department. Patient will pursue further outpatient evaluation with primary care physician or other designated or consulting physician as outlined in the discharge instructions. The patient and/or caregivers are agreeable to this plan of care and follow-up instructions have been explained in detail. The patient and/or caregivers have received these instructions in written form and have expressed an understanding of the discharge instructions. The patient and/or caregivers are aware that any significant change of condition or worsening of symptoms should prompt immediate return to this or the closest emergency department or call to 911. John Disclaimer: Dragbrayden Disclaimer: This electronic medical record was generated, in whole or in part, using a voice recognition dictation system. Departure Departure Impression: Primary Impression: Right flank pain Disposition: HOME / SELF CARE / HOMELESS Condition: STABLE Referrals: Camila CANTU MD (PCP) Follow-up with your primary care physician in 24 to 48 hours for re-evaluation OR FOLLOW UP WITH FAMILY MEDICINE: [address] [place] [address] Patient Instructions: Flank Pain, Musculoskeletal Pain Additional Instructions: EMERGENCY DEPARTMENT GENERAL DISCHARGE INSTRUCTIONS Thank you for coming to [facility] Emergency Department (ED) today and trusting us with you care. We trust that you had a positive experience in our Emergency Department. If you wish to speak to the department management, you may call the Director at [phone]. YOUR FOLLOW UP INSTRUCTIONS ARE FOLLOWS: 1. Do you have a private Doctor? If you do not have a private doctor, please ask for a resource list of physicians or clinics that may be able to assist you with follow up care. 2. The Emergency Physicain has interpreted your x-rays. The X-Ray specialist will also review them. If there is a change in the findings, you will be notified in 48 hours when at all possible. 3. A lab test or culture has been done, your results will be reviewed and you will be notified if you need a change in treatment. ADDITIONAL INSTRUCTIONS AND INFORMATION: 1. Your care today has been supervised by a physician who is specially trained in emergency care. Many problems require more than one evaluation for a complete diagnosis and treatment. We recommend that you schedule your follow up appointment as recommended to ensure complete treatment of you illness or injury. If you are unable to obtain follow up care and continue to have a problem, or if your condition worsens, we recommend that you return to the ED. 2. We are not able to safely determine your condition over the phone nor are we able to give sound medical advice over the phone. For these safety reasons, if you call for medical advice we will ask you to come to the ED for further evaluation. 3. If you have any questions regarding these discharge instructions please call the ED at [phone]. SAFETY INFORMATION: In the interest of safety, wellness, and injury prevention; we encourage you to wear your sealbelt, if you smoke; quite smoking, and we encourage family to use a protective helmet for bicycling and other sporting events that present an increased risk for head injury. IF YOUR SYMPTOMS WORSEN OR NEW SYMPTOMS DEVELOP, OR YOU HAVE CONCERNS ABOUT YOUR CONDITION; OR IF YOUR CONDITION WORSENS WHILE YOU ARE WAITING FOR YOUR FOLLOW UP APPOINTMENT; EITHER CONTACT YOUR PRIMARY CARE DOCTOR, THE PHYSICIAN WHOSE NAME AND NUMBER YOU WERE GIVEN, OR RETURN TO THE ED IMMEDIATELY. Scripts Lidocaine (Lido Ayo) 1 Each Adh..patch 1 EACH TP DAILY for 5 Days, #15 PATCH Apply 1 patch for 12 hours, remove for another 12 hours. May repeat, 1 patch per day as instructed above. Prov: DAVID CARREON DO 02/01/22 Cyclobenzaprine Hcl (CYCLOBENZAPRINE HCL) 10 Mg Tablet 1 TAB PO TID for 10 Days, #30 TAB Prov: DAVID CARREON DO 02/01/22 DAVID CARREON DO Feb 01, 2022 10:37
[2022-02-01 10:51] VITALS: BP 171/93
[2022-02-01] MEDS ORDERED: LIDO1ADH78 TP (10:53)
== END 2022-02-01 10:56 | disposition home or self-care (01) ==
LOC: ER 07:52
DX: R10.30 Lower abdominal pain, unspecified (principal); R05.9 Cough, unspecified; F31.9 Bipolar disorder, unspecified; I10 Essential (primary) hypertension; E03.9 Hypothyroidism, unspecified; F17.200 Nicotine dependence, unspecified, uncomplicated
CPT/HCPCS: 71250; 74176; 81001; 81025; 96361; 96374; 96375; 96376; 99285-25